=== PATIENT | female | born 1995 | race African-American/Black ===

== ENCOUNTER 2016-06-26 18:57 | Emergency (ER) | payer MEDICAID ==
--- NOTE | 2016-06-26 20:15 | ER Document Report ---
ED Medical Screen (RME) - General Stated Complaint: SORE THROAT, BODY PAIN Time seen by provider: 20:12 Mode of Arrival: Ambulatory Information source: Patient Notes: 20-year-old female presents to ED for sore throat bodyaches, pelvic pain, and vaginal pain for the last couple days. She states it is getting worse. Patient denies fevers. Last menstrual period she states it was at the beginning of this month but she's not sure of the date and it was spotty then. I have greeted and performed a rapid initial assessment of this patient. A comprehensive ED assessment and evaluation of the patient, analysis of test results and completion of medical decision making process will be conducted by an additional ED providers. TRAVEL OUTSIDE OF THE [place] IN LAST 30 DAYS: No - Related Data Allergies/Adverse Reactions: No Known Allergies Allergy (Verified 07/29/15 13:53) Past Medical History Pulmonary Medical History: Reports: Hx Bronchitis Neurological Medical History: Reports: Hx Migraine Musculoskeltal Medical History: Reports Hx Musculoskeletal Trauma Skin Medical History: Reports Hx Cellulitis Psychiatric Medical History: Reports: Hx Anxiety Past Surgical History: Reports: Hx Oral Surgery - wisdom teeth - Immunizations Immunizations up to date: Yes Hx Diphtheria, Pertussis, Tetanus Vaccination: Yes Physical Exam - Vital signs Vitals: Temp Pulse Resp BP Pulse Ox 99.5 F 98 H 20 142/85 H 100 06/26/16 20:07 06/26/16 20:07 06/26/16 20:07 06/26/16 20:07 06/26/16 20:07 Course - Vital Signs Vital signs: Temp Pulse Resp BP Pulse Ox 99.5 F 98 H 20 142/85 H 100 06/26/16 20:07 06/26/16 20:07 06/26/16 20:07 06/26/16 20:07 06/26/16 20:07
[2016-06-26 22:08] LABS: ABSOLUTE BASOPHILS # (AUTO) 0.1 10^3/uL (0.0-0.2); ABSOLUTE MONOCYTES (AUTO) 0.7 10^3/uL (0.1-1.4); ABSOLUTE NEUT (AUTO) 7.4 10^3/uL (1.7-8.2); BASOPHILS % (AUTO) 0.6 % (0-2); EOSINOPHILS % (AUTO) 0.3 % (0-6); HEMATOCRIT 41.6 % (36.0-47.0); HEMOGLOBIN 14.5 g/dL (12.0-15.5); HGB HCT DIFFERENCE 1.9; LYMPHOCYTES % (AUTO) 19.8 % (13-45); MEAN CORPUSCULAR HEMOGLOBIN 32.1 pg (27.0-33.4); MEAN CORPUSCULAR HGB CONC 34.8 g/dL (32.0-36.0); MEAN CORPUSCULAR VOLUME 92 fl (80-97); MONOCYTES % (AUTO) 6.8 % (3-13); RED BLOOD COUNT 4.51 10^6/uL (3.72-5.28); RED CELL DISTRIBUTION WIDTH 12.2 % (11.5-14.0); SEGMENTED NEUTROPHILS % (AUTO) 72.5 % (42-78); WHITE BLOOD COUNT 10.2 10^3/uL (4.0-10.5)
[2016-06-26 22:10] LABS: APPEARANCE,URINE SLIGHTLY-CLOUDY; BILIRUBIN,URINE NEGATIVE (NEGATIVE); GLUCOSE, URINE NEGATIVE (NEGATIVE); KETONES,URINE NEGATIVE (NEGATIVE); LEUKOCYTE ESTERASE,URINE LARGE (NEGATIVE); NITRITE,URINE NEGATIVE (NEGATIVE); PROTEIN,URINE NEGATIVE (NEGATIVE); URINE SPECIFIC GRAVITY 1.016; UROBILINOGEN,URINE NEGATIVE mg/dL (<2.0)
[2016-06-26 22:28] LABS: ALANINE AMINOTRANSFERASE 38 U/L (5-35); ALBUMIN 4.9 g/dL (3.7-5.6); ALKALINE PHOSPHATASE 97 U/L (50-135); ANION GAP 15 (5-19); ASPARTATE AMINO TRANSFERASE 22 U/L (5-30); BILIRUBIN,DIRECT 0.2 mg/dL (0.0-0.4); BILIRUBIN,TOTAL 0.6 mg/dL (0.2-1.3); BLOOD UREA NITROGEN 9 mg/dL (7-20); CALCIUM 10.4 mg/dL (8.4-10.2); CARBON DIOXIDE 27 mmol/L (22-30); CHLORIDE 102 mmol/L (98-107); CREATININE RESULT 0.73 mg/dL (0.52-1.25); GLUCOSE 98 mg/dL (75-110); POTASSIUM 4.3 mmol/L (3.6-5.0); SODIUM 143.7 mmol/L (137-145); TOTAL PROTEIN 8.6 g/dL (6.3-8.2)
[2016-06-27] MEDS ORDERED: ACETAMINOPHEN 325 MG TABLET PO ONE (01:22)
--- NOTE | 2016-06-27 02:22 | ER Document Report ---
ED General - General Chief Complaint: Vaginal Pain Stated Complaint: SORE THROAT, BODY PAIN Mode of Arrival: Ambulatory Information source: Patient TRAVEL OUTSIDE OF THE [place] IN LAST 30 DAYS: No - HPI Notes: Patient presents with report of suprapubic pain and vaginal pain she's had for the last 3-4 days with some urinary frequency, and tonight she thinks she is running a fever with chills and has pharyngitis. She reports no cough or congestion. She states she is in a monogamous relationship and does not have concern for STD. She reports no flu exposures. No constipation, diarrhea no neck stiffness. No significant vaginal discharge. - Related Data Allergies/Adverse Reactions: No Known Allergies Allergy (Verified 06/27/16 00:40) Past Medical History - General Information source: Patient Last Menstrual Period: / - Social History Smoking Status: Never Smoker Chew tobacco use (# tins/day): No Frequency of alcohol use: Occasional Drug Abuse: None Family History: Arthritis, DM, Hyperlipidemia, Hypertension, Malignancy. denies : CAD, COPD, CVA, Thyroid Disfunction Patient has suicidal ideation: No Patient has homicidal ideation: No Pulmonary Medical History: Reports: Hx Bronchitis Neurological Medical History: Reports: Hx Migraine Renal/ Medical History: Denies: Hx Peritoneal Dialysis Musculoskeltal Medical History: Reports Hx Musculoskeletal Trauma Skin Medical History: Reports Hx Cellulitis Psychiatric Medical History: Reports: Hx Anxiety Past Surgical History: Reports: Hx Oral Surgery - wisdom teeth - Immunizations Immunizations up to date: Yes Hx Diphtheria, Pertussis, Tetanus Vaccination: Yes Review of Systems - Review of Systems Notes: REVIEW OF SYSTEMS: CONSTITUTIONAL : Denies recent illness. EENT: Denies eye, ear or mouth pain or symptoms. Denies nasal or sinus congestion or discharge. Denies throat, tongue, or mouth swelling or difficulty swallowing. CARDIOVASCULAR: Denies chest pain. Denies palpitations or racing or irregular heart beat. Denies ankle edema. RESPIRATORY: Denies cough, cold, or chest congestion. Denies shortness of breath, difficulty breathing, or wheezing. GASTROINTESTINAL: Denies abdominal pain or distention. Denies nausea, vomiting , or diarrhea. Denies blood in vomitus, stools, or per rectum. Denies black, tarry stools. Denies constipation. GENITOURINARY: Reports dysuria. FEMALE GENITOURINARY: Denies vaginal bleeding, heavy or abnormal periods, irregular periods. Denies vaginal discharge or odor. MUSCULOSKELETAL: Denies back or neck pain or stiffness. Denies joint pain or swelling. SKIN: Denies rash, lesions or sores. HEMATOLOGIC : Denies easy bruising or bleeding. LYMPHATIC: Denies swollen, enlarged glands. NEUROLOGICAL: Denies confusion or altered mental status. Denies passing out or loss of consciousness. Denies dizziness or lightheadedness. Denies headache. Denies weakness or paralysis or loss of use of either side. Denies problems with gait or speech. Denies sensory loss, numbness, or tingling. Denies seizures. PSYCHIATRIC: Denies anxiety or stress. Denies depression, suicidal ideation, or homicidal ideation. ALL OTHER SYSTEMS REVIEWED AND NEGATIVE. Dictation was performed using [employer] voice recognition software Physical Exam - Vital signs Vitals: Temp Pulse Resp BP Pulse Ox 99.5 F 98 H 20 142/85 H 100 06/26/16 20:07 06/26/16 20:07 06/26/16 20:07 06/26/16 20:07 06/26/16 20:07 - Notes Notes: PHYSICAL EXAMINATION: GENERAL: Well-appearing, well-nourished and in no acute distress. HEAD: Atraumatic, normocephalic. EYES: Pupils equal round and reactive to light, extraocular movements intact, conjunctiva are normal. ENT: Nares patent. Moist mucous membranes. Very minimal tonsillar erythema. No exudate or abscess. NECK: Normal range of motion, supple. Scant adenopathy anterior cervical. LUNGS: Breath sounds clear to auscultation bilaterally and equal. No wheezes rales or rhonchi. HEART: Regular rate and rhythm without murmurs ABDOMEN: Soft, nontender, nondistended abdomen. No guarding, no rebound. No masses appreciated. Female : Normal external female genitalia. Cervix is somewhat anterior overall is benign. Minimal whitish discharge noted. No cervical motion tenderness. No significant adnexal mass or tenderness noted. Musculoskeletal: Normal range of motion, no pitting or edema. No cyanosis. NEUROLOGICAL: Cranial nerves grossly intact. Normal speech, normal gait. Normal sensory, motor exams PSYCH: Normal mood, normal affect. SKIN: Warm, Dry, normal turgor, no rashes or lesions noted. Course - Re-evaluation Re-evalutation: 06/27/16 05:02 No evidence for pyelonephritis or or GI bleed or anemia or strep or sepsis or diabetes or renal insufficiency. We will treat the patient for bacterial vaginosis and urinary tract infection. Also question viral pharyngitis as possible etiology for fever. - Vital Signs Vital signs: Temp Pulse Resp BP Pulse Ox 99.4 F 99 H 18 149/88 H 99 06/27/16 00:36 06/27/16 00:36 06/27/16 00:44 06/27/16 00:36 06/27/16 00:36 - Laboratory Result Diagrams: 06/26/16 21:30 06/26/16 21:30 Laboratory results interpreted by me: 06/26/16 06/26/16 21:30 21:30 Calcium 10.4 H ALT 38 H Total Protein 8.6 H Ur Leukocyte Esterase LARGE H Discharge - Discharge Clinical Impression: Bacterial vaginosis, UTI (urinary tract infection) Pharyngitis Qualifiers: Pharyngitis/tonsillitis etiology: unspecified etiology Qualified Code(s): J02.9 - Acute pharyngitis, unspecified Condition: Stable Disposition: HOME, SELF-CARE Instructions: Urinary Tract Infection ([facility]) Additional Instructions: *You have been evaluated for a sore throat, pharyngitis *Take medication as prescribed *Warm salt water gargles and throat lozenges for comfort *Change toothbrush after two days of antibiotics *Do not let anyone drink/eat after you *Good hand washing *Follow-up with a primary care provider *Return to ED for worsening condition change, needs Vaginosis, Bacterial Your exam shows you have bacterial vaginosis. This condition is due to an overgrowth of bacteria in the vagina. Symptoms may include vaginal itching or pain, a smelly discharge, and sometimes burning with urination. Normally this is not transmitted by sexual contact. Vaginosis can be treated with oral or topical antibiotics. Metronidazole ( Flagyl) pills are usually effective. Topical vaginal creams include Cleocin and Metro-Gel. You should avoid sexual contact until your symptoms are all better. Call the doctor if you develop pelvic pain, fever, or problems with urination, or if you don't improve as expected. Prescriptions: Ciprofloxacin HCl [Cipro 500 mg Tablet] 500 mg PO BID #14 tablet Metronidazole [Flagyl 500 mg Tablet] 500 mg PO BID #14 tablet Forms: Return to Work
[2016-06-27] MEDS ORDERED: METRONIDAZOLE 500 MG TABLET PO ONE (03:10)
[2016-06-27] MEDS ORDERED: CIPROFLOXACIN HCL 500 MG TABLET PO ONE (03:11)
[2016-06-27 03:38] LABS: CHLAM PCR NOT DETECTED (NOT DETECT)
[2016-06-27 05:08] VITALS: BP 113/81
== END 2016-06-27 05:08 | disposition home or self-care (01) ==
LOC: ER 18:57
DX: N76.0 Acute vaginitis (principal); N39.0 Urinary tract infection, site not specified; J02.9 Acute pharyngitis, unspecified; R10.2 Pelvic and perineal pain; R52 Pain, unspecified; R35.0 Frequency of micturition; R50.9 Fever, unspecified
CPT/HCPCS: 99283; 36415; 87070; 87086; 87210; 87880; 84703; 85025; 80053; 81001; 87491; 87591; J3490 ×3

== ENCOUNTER 2016-10-18 19:00 | Emergency (ER) | payer MEDICAID ==
[2016-10-18] MEDS ORDERED: ACETAMINOPHEN 325 MG TABLET PO ONE (19:05)
[2016-10-18] MEDS ORDERED: NORMAL SALINE 1000 ML 1,000 ML IV ONE (21:23)
[2016-10-18] MEDS ORDERED: KETOROLAC TROMETHAMINE INJ/PF 30 MG/1 ML SDV IV ONE (21:59)
[2016-10-18] MEDS ORDERED: ONDANSETRON HCL INJ/PF 4 MG/2 ML SDV IV ONE (21:59)
--- NOTE | 2016-10-18 22:15 | ER Document Report ---
ED ENT - General Mode of Arrival: Ambulatory Information source: Patient TRAVEL OUTSIDE OF THE [place] IN LAST 30 DAYS: No - HPI Patient complains to provider of: Throat problem - General Chief Complaint: Sore Throat Stated Complaint: SORE THROAT Time Seen by Provider: 10/18/16 21:23 Notes: Patient is a 20-year-old female who presents to the emergency department today with complaints of a sore throat. Patient states she has had fevers and generalized body aches as well. (SHENA VIRAMONTES) - Related Data Allergies/Adverse Reactions: No Known Allergies Allergy (Verified 10/18/16 19:03) Past Medical History - General Information source: Patient - Social History Smoking Status: Unknown if Ever Smoked Frequency of alcohol use: None Drug Abuse: None Lives with: Family Family History: Arthritis, DM, Hyperlipidemia, Hypertension, Malignancy Patient has suicidal ideation: No Patient has homicidal ideation: No Pulmonary Medical History: Reports: Hx Bronchitis Neurological Medical History: Reports: Hx Migraine Musculoskeltal Medical History: Reports Hx Musculoskeletal Trauma Skin Medical History: Reports Hx Cellulitis Psychiatric Medical History: Reports: Hx Anxiety Past Surgical History: Reports: Hx Oral Surgery - wisdom teeth - Immunizations Immunizations up to date: Yes Hx Diphtheria, Pertussis, Tetanus Vaccination: Yes Review of Systems - Review of Systems Constitutional: See HPI, Fever EENT: See HPI, Throat pain Cardiovascular: No symptoms reported Respiratory: No symptoms reported Gastrointestinal: No symptoms reported Genitourinary: No symptoms reported Female Genitourinary: No symptoms reported Musculoskeletal: See HPI, Joint pain - generalized body aches Skin: No symptoms reported Hematologic/Lymphatic: No symptoms reported Neurological/Psychological: No symptoms reported -: Yes All other systems reviewed and negative Physical Exam - Vital signs Interpretation: Tachycardic, Febrile - Vital signs Vitals: Temp Pulse Resp BP Pulse Ox 103 F H 130 H 18 124/76 100 10/18/16 19:04 10/18/16 19:04 10/18/16 19:04 10/18/16 19:04 10/18/16 19:04 - Notes Notes: Physical Exam: General: Alert, appears uncomfortable. HEENT: Normocephalic. Atraumatic. PERRL. Extraocular movements intact. Oropharynx clear. Symmetrical bilateral tonsillar hypertrophy, tonsillar exudate bilaterally, tonsillar erythema bilaterally. No airway compromise. Neck: Supple. Non-tender. Respiratory: No respiratory distress. Clear and equal breath sounds bilaterally. Cardiovascular: Regular rate and rhythm. Abdominal: Normal Inspection. Non-tender. No distension. Normal Bowel Sounds. Back: Non-tender. No deformity or step off. Extremities: Moves all four extremities. Upper extremities: Normal inspection. Normal ROM. Lower extremities: Normal inspection. No edema. Normal ROM. Neurological: Normal cognition. AAOx4. Normal speech. Psychological: Normal affect. Normal Mood. Skin: Warm. Dry. Normal color. (SHENA VIRAMONTES) Course - Re-evaluation Re-evalutation: 10/19/16 00:22 Patient presents with fever, tachycardia and throat pain. Patient has been treated with fluids, Toradol, Zofran and is feeling much better. Able to take p.o. without difficulty. Patient will be given penicillin G here in the emergency department. She will be given a work note as requested. She is to stay home and hydrate. Understands agrees with plan. Stable for discharge at this time. No evidence for peritonsillar abscess, retropharyngeal abscess, or any other infectious process at this time. (ERICA REEDER) - Vital Signs Vital signs: Temp Pulse Resp BP Pulse Ox 103 F H 130 H 18 124/76 100 10/18/16 19:04 10/18/16 19:04 10/18/16 19:04 10/18/16 19:04 10/18/16 19:04 Discharge - Discharge Clinical Impression: Strep pharyngitis Condition: Stable Disposition: HOME, SELF-CARE Instructions: Strep Throat ([facility]) Additional Instructions: Please follow-up with your doctor. Someone will call you if the throat culture is positive. Forms: Return to Work Scribe Attestation: 10/19/16 00:21 I personally performed the services described in the documentation, reviewed and edited the documentation which was dictated to the scribe in my presence, and it accurately records my words and actions. (ERICA REEDER) Scribe Documentation - Scribe Written by Scribe:: Abad Robles, 10/18/2016 2226 acting as scribe for :: [place]
[2016-10-18] MEDS ORDERED: PENICILLIN G BENZATHINE 1.2 MILLION UNIT/2 ML DISP.SYRIN IM ONE (23:28)
[2016-10-19 00:46] VITALS: BP 110/75
== END 2016-10-19 00:44 | disposition home or self-care (01) ==
LOC: ER 19:00
DX: J02.0 Streptococcal pharyngitis (principal); R50.9 Fever, unspecified; M25.50 Pain in unspecified joint
CPT/HCPCS: 99283; 96372; 96374; 96375; 36415; 87070; 87880; 87077; 86308; J3490; J1885; J0561; J2405; J7030

== ENCOUNTER 2017-02-19 17:25 | Emergency (ER) | payer SELFPAY ==
--- NOTE | 2017-02-19 19:27 | ER Document Report ---
ED GI/ - General Chief Complaint: Abdominal Pain Stated Complaint: ABDOMINAL PAIN Time Seen by Provider: 02/19/17 18:50 Mode of Arrival: Ambulatory Information source: Patient Notes: 21-year-old female presents to ED for pelvic pain 3 days with last menstrual period of 01/30/2017 with white vaginal discharge and unprotected sex. She also has a sore throat for 4 days with no fever. She states she has had a runny nose and cough. TRAVEL OUTSIDE OF THE [place] IN LAST 30 DAYS: No - HPI Patient complains to provider of: Pelvic pain, Vaginal discharge Onset: Other Timing/Duration: Gradual - 3-4 days Severity at maximum: Moderate Severity in ED: Moderate Pain Level: 2 Location: Pelvis, Other Vaginal bleeding (Compared to normal period): None - Sore throat LMP: 01/30/2017 Sexual history: Unprotected intercourse Associated symptoms: Vaginal discharge, Other - Sore throat and pelvic pain states she has had a runny nose and cough also. denies: Fever, Urinary hesitancy, Urinary frequency, Urinary retention, Urinary urgency Exacerbated by: Denies Relieved by: Denies Similar symptoms previously: Yes Recently seen / treated by doctor: No - Related Data Allergies/Adverse Reactions: No Known Allergies Allergy (Verified 02/19/17 19:47) Past Medical History - General Information source: Patient - Social History Smoking Status: Current Every Day Smoker Cigarette use (# per day): Yes - 1 cig a day Chew tobacco use (# tins/day): No Smoking Education Provided: Yes Frequency of alcohol use: Social Drug Abuse: None Family History: Arthritis, DM, Hyperlipidemia, Hypertension, Malignancy Patient has suicidal ideation: No Patient has homicidal ideation: No - Past Medical History Cardiac Medical History: Reports: None Pulmonary Medical History: Reports: Hx Bronchitis EENT Medical History: Reports: None Neurological Medical History: Reports: Hx Migraine Endocrine Medical History: Reports: None Renal/ Medical History: Reports: None Malignancy Medical History: Reports: None GI Medical History: Reports: None Musculoskeltal Medical History: Reports Hx Musculoskeletal Trauma Skin Medical History: Reports Hx Cellulitis Psychiatric Medical History: Reports: Hx Anxiety Traumatic Medical History: Reports: None Infectious Medical History: Reports: None Past Surgical History: Reports: Hx Oral Surgery - wisdom teeth - Immunizations Immunizations up to date: Yes Hx Diphtheria, Pertussis, Tetanus Vaccination: Yes Review of Systems - Review of Systems Constitutional: No symptoms reported EENT: Nose discharge, Sinus discharge, Throat pain Cardiovascular: No symptoms reported Respiratory: Cough Gastrointestinal: No symptoms reported Genitourinary: No symptoms reported Female Genitourinary: Other - pelvic pain Musculoskeletal: No symptoms reported Skin: No symptoms reported Hematologic/Lymphatic: No symptoms reported Neurological/Psychological: No symptoms reported -: Yes All other systems reviewed and negative Physical Exam - Vital signs Vitals: Temp Pulse Resp BP Pulse Ox 99.1 F 90 16 123/82 98 02/19/17 17:35 02/19/17 17:35 02/19/17 17:35 02/19/17 17:35 02/19/17 17:35 Interpretation: Normal - General General appearance: Appears well, Alert - HEENT Head: Normocephalic, Atraumatic Eyes: Normal Pupils: PERRL - Respiratory Respiratory status: No respiratory distress Chest status: Nontender Breath sounds: Normal Chest palpation: Normal - Cardiovascular Rhythm: Regular Heart sounds: Normal auscultation Murmur: No - Abdominal Inspection: Normal Distension: No distension Bowel sounds: Normal Tenderness: Nontender Organomegaly: No organomegaly - Genitourinary External exam: Other - Multiple healing infected hair follicles to the mons pubis, enlarged lymph node in the right groin Speculum exam: Cervix closed, Vaginal discharge - White Vaginal bleeding: None Bimanuel exam: Normal - Back Back: Normal, Nontender - Extremities General upper extremity: Normal inspection, Nontender, Normal color, Normal ROM , Normal temperature General lower extremity: Normal inspection, Nontender, Normal color, Normal ROM , Normal temperature, Normal weight bearing. No: Yola's sign - Neurological Neuro grossly intact: Yes Cognition: Normal Orientation: AAOx4 [place] Coma Scale Eye Opening: Spontaneous [place] Coma Scale Verbal: Oriented [place] Coma Scale Motor: Obeys Commands [place] Coma Scale Total: 15 Speech: Normal Motor strength normal: LUE, RUE, LLE, RLE Sensory: Normal - Psychological Associated symptoms: Normal affect, Normal mood - Skin Skin Temperature: Warm Skin Moisture: Dry Skin Color: Normal Course - Re-evaluation Re-evalutation: 02/19/17 20:43 Patient was treated with Rocephin and azithromycin for her pelvic pain. She was also given a prescription for Keflex for her folliculitis to the mons pubis. She was given a prescription for 2 Diflucan 1 to take in the morning and 1 to take in a week after the Keflex as she has a positive yeast infection. - Vital Signs Vital signs: Temp Pulse Resp BP Pulse Ox 99.1 F 90 16 123/82 98 02/19/17 17:35 02/19/17 17:35 02/19/17 17:35 02/19/17 17:35 02/19/17 17:35 - Laboratory Laboratory results interpreted by me: 02/19/17 19:03 Urine Urobilinogen 2.0 H Discharge - Discharge Clinical Impression: Pelvic pain, Yeast vaginitis, Folliculitis Condition: Stable Disposition: HOME, SELF-CARE Instructions: Family Physicians / Practices Additional Instructions: VAGINAL YEAST INFECTION: You have evidence of a yeast infection -- called "coby." A vaginal yeast infection often causes itching and discharge. While not dangerous, it can be very unpleasant. A yeast infection often follows the use of powerful antibiotics. It is more likely to occur in diabetics. The treatment now is usually a single pill of Diflucan, but also an antifungal cream or suppository may be used for a few days. You do not need to avoid sexual intercourse. Recurrences are common. You can make a recurrence less likely by wearing cotton underwear and avoiding tight clothing. For mild recurrences, you can try [id number] creams or suppositories that are made specifically for yeast. If the symptoms do not resolve, you should follow up for re-examination. Sometimes treatment of the sexual partner is necessary if infections are recurrent. Folliculitis You have a skin infection called folliculitis. This occurs when bacteria infect the hair follicles of the skin. Typically, redness and small pustules are found where hair shafts enter the skin. Allergy, surface irritation, shaving, and exposure to hot tubs predispose to folliculitis. The usual treatment is antibiotic ointment, sometimes combined with cortisone-type medication. Warm compresses are often used. If the infection has moved deeper into the skin, oral antibiotics may be necessary. To avoid future episodes of folliculitis, you must identify (if possible) the factors which allowed this infection to start. If you develop increasing pain, swelling, fever, or red streaks, call the doctor or return for re-evaluation. CEPHALOSPORINS: An antibiotic of the cephalosporin class has been prescribed. This type of antibiotic covers a wide variety of infections, including those of the skin, lungs, middle ear, and urinary tract. This antibiotic is somewhat similar to the penicillin family. In rare cases , a person who is allergic to penicillin will also be allergic to this medication. If you have had a severe allergic reaction to penicillin, and have not taken this antibiotic since that time, notify your doctor. Antibiotics which cover many germs ("broad spectrum" antibiotics) are more likely to cause diarrhea or "yeast" infections. Women prone to vaginal yeast problems may suffer an attack after taking this antibiotic. In infants, oral thrush (white spots "stuck" on the cheek) or yeast diaper rash may result. See your doctor if these problems occur. Call the doctor at once if you develop hives, itching, shortness of breath , or lightheadedness. Cephalexin The antibiotic you've been prescribed is a member of the cephalosporin class. This type of antibiotic covers a wide variety of infections, including those of the skin, lungs, and urinary tract. It's useful for staph infections. This antibiotic is slightly similar to the penicillin family. In rare cases , a person who is allergic to penicillin will also be allergic to this medication. If you have had a severe allergic reaction to penicillin, and have not taken this antibiotic since that time, notify your doctor. Antibiotics which cover many germs ("broad spectrum" antibiotics) are more likely to cause diarrhea or "yeast" infections. Women prone to vaginal yeast problems may suffer an attack after taking this antibiotic. In infants, oral thrush (white spots "stuck" on the cheek) or yeast diaper rash may result. See your doctor if these problems occur. Call at once if you develop itching, hives , shortness of breath, or lightheadedness. AZITHROMYCIN: Azithromycin (Zithromax) is a broad spectrum antibiotic in the same class as erythromycin. It can treat a variety of bacterial infections, but is most frequently used for respiratory infections. Azithromycin is extremely long-lasting. It accumulates in body tissues and continues to kill bacteria for many days. In order to improve absorption, Azithromycin should be taken at least one hour before or two hours after a meal. It does not have the same strong tendency to upset the stomach as erythromycin and is usually very well tolerated. Patients who have had a rash or other true allergic reactions to erythromycin should not take this medication. Call if you develop gastrointestinal distress, severe diarrhea, rash, hives, itching, or shortness of breath. FOLLOW-UP CARE: If you have been referred to a physician for follow-up care, call the physician s office for an appointment as you were instructed or within the next two days. If you experience worsening or a significant change in your symptoms, notify the physician immediately or return to the Emergency Department at any time for re-evaluation. Prescriptions: Cephalexin Monohydrate [Keflex 500 mg Capsule] 500 mg PO QID #20 capsule Fluconazole [Diflucan] 150 mg PO ONCE PRN #2 tablet PRN Reason:
[2017-02-19 19:30] LABS: APPEARANCE,URINE CLEAR; BILIRUBIN,URINE NEGATIVE (NEGATIVE); GLUCOSE, URINE NEGATIVE (NEGATIVE); KETONES,URINE NEGATIVE (NEGATIVE); LEUKOCYTE ESTERASE,URINE NEGATIVE (NEGATIVE); NITRITE,URINE NEGATIVE (NEGATIVE); PROTEIN,URINE NEGATIVE (NEGATIVE); URINE SPECIFIC GRAVITY 1.017
[2017-02-19] MEDS ORDERED: CEFTRIAXONE INJ 250 MG VIAL IM ONE (20:08)
[2017-02-19] MEDS ORDERED: LIDOCAINE 1% INJ-PF (10 MG/ML) 30 ML SDV INJ ONE (20:08)
[2017-02-19] MEDS ORDERED: AZITHROMYCIN 250 MG TABLET PO ONE (20:08)
[2017-02-19 21:08] VITALS: BP 126/74
[2017-02-19 21:45] LABS: CHLAM PCR NOT DETECTED (NOT DETECT)
== END 2017-02-19 21:09 | disposition home or self-care (01) ==
LOC: ER 17:25
DX: B37.3 Candidiasis of vulva and vagina (principal); L73.9 Follicular disorder, unspecified; R10.2 Pelvic and perineal pain; J02.9 Acute pharyngitis, unspecified; R05 Cough; R09.89 Other specified symptoms and signs involving the circulatory and respiratory systems; F17.210 Nicotine dependence, cigarettes, uncomplicated
CPT/HCPCS: 99283; 96372; 87070; 87210; 87880; 81025; 81001; 87491; 87591; J3490; J0696

== ENCOUNTER 2017-03-12 22:33 | Emergency (ER) | payer SELFPAY ==
[2017-03-12 22:44] VITALS: BP 133/91
[2017-03-12 23:31] LABS: ALANINE AMINOTRANSFERASE 34 U/L (9-52); ALBUMIN 4.7 g/dL (3.5-5.0); ALKALINE PHOSPHATASE 69 U/L (38-126); ANION GAP 13 (5-19); ASPARTATE AMINO TRANSFERASE 23 U/L (14-36); BILIRUBIN,DIRECT 0.5 mg/dL (0.0-0.4); BILIRUBIN,TOTAL 0.7 mg/dL (0.2-1.3); BLOOD UREA NITROGEN 9 mg/dL (7-20); CALCIUM 9.7 mg/dL (8.4-10.2); CARBON DIOXIDE 26 mmol/L (22-30); CHLORIDE 102 mmol/L (98-107); CREATININE RESULT 0.79 mg/dL (0.52-1.25); GLUCOSE 93 mg/dL (75-110); LIPASE 135.9 U/L (23-300); POTASSIUM 4.6 mmol/L (3.6-5.0); SODIUM 140.8 mmol/L (137-145); TOTAL PROTEIN 8.2 g/dL (6.3-8.2)
[2017-03-12 23:34] LABS: ABSOLUTE LYMPHOCYTES (AUTO) 2.4 10^3/uL (0.5-4.7); ABSOLUTE MONOCYTES (AUTO) 0.5 10^3/uL (0.1-1.4); ABSOLUTE NEUT (AUTO) 3.3 10^3/uL (1.7-8.2); BASOPHILS % (AUTO) 0.4 % (0-2); EOSINOPHILS % (AUTO) 0.8 % (0-6); HEMATOCRIT 41.9 % (36.0-47.0); HEMOGLOBIN 14.9 g/dL (12.0-15.5); HGB HCT DIFFERENCE 2.8; LYMPHOCYTES % (AUTO) 38.8 % (13-45); MEAN CORPUSCULAR HEMOGLOBIN 32.4 pg (27.0-33.4); MEAN CORPUSCULAR HGB CONC 35.6 g/dL (32.0-36.0); MEAN CORPUSCULAR VOLUME 91 fl (80-97); RED CELL DISTRIBUTION WIDTH 12.5 % (11.5-14.0); WHITE BLOOD COUNT 6.3 10^3/uL (4.0-10.5)
[2017-03-12 23:38] LABS: APPEARANCE,URINE SLIGHTLY-CLOUDY; BILIRUBIN,URINE NEGATIVE (NEGATIVE); GLUCOSE, URINE NEGATIVE (NEGATIVE); KETONES,URINE NEGATIVE (NEGATIVE); LEUKOCYTE ESTERASE,URINE NEGATIVE (NEGATIVE); NITRITE,URINE NEGATIVE (NEGATIVE); PROTEIN,URINE NEGATIVE (NEGATIVE); URINE SPECIFIC GRAVITY 1.009; UROBILINOGEN,URINE NEGATIVE mg/dL (<2.0)
[2017-03-12 23:50] LABS: BACTERIA,URINE TRACE /HPF; WBC,URINE 0-1 /HPF
== END 2017-03-13 00:57 | disposition left against medical advice (07) ==
LOC: ER 22:33
DX: Z53.21 Procedure and treatment not carried out due to patient leaving prior to being seen by health care provider (principal)
CPT/HCPCS: 36415; 80053; 81001; 83690; 84703; 85025

== ENCOUNTER 2017-05-04 05:22 | Emergency (ER) | payer SELFPAY ==
[2017-05-04 07:44] LABS: A TYPE INFLUENZA AG NEGATIVE (NEGATIVE); B INFLUENZA AG NEGATIVE (NEGATIVE)
[2017-05-04 07:56] VITALS: BP 114/97
--- NOTE | 2017-05-04 07:56 | ER Document Report ---
ED General - General Chief Complaint: Sore Throat Stated Complaint: COUGH/CHEST PAIN Time Seen by Provider: 05/04/17 06:05 Mode of Arrival: Ambulatory Information source: Patient Notes: 21 yr old female presents with complaints of sore throat intermittent cough. Pt notes fever and body aches pt has been feeling ill for the past few days. Notes that she takes Robitussin Tylenol feels better when she wakes up her body hurts again patient has been possibly exposed to influenza or viral infections from work TRAVEL OUTSIDE OF THE [place] IN LAST 30 DAYS: No - HPI Onset: Other - 3 or 4 day duration Onset/Duration: Intermittent Quality of pain: Achy Severity: Mild Pain Level: 1 Associated symptoms: Body/muscle aches, Nonproductive cough, Fever, Sore throat Exacerbated by: Denies Relieved by: Other - [id number] medications Similar symptoms previously: No Recently seen / treated by doctor: No - Related Data Allergies/Adverse Reactions: No Known Allergies Allergy (Verified 03/12/17 22:41) Past Medical History - Social History Smoking Status: Current Every Day Smoker Cigarette use (# per day): Yes Chew tobacco use (# tins/day): No Smoking Education Provided: Yes - Patient counselled regarding cessation for 2 minutes Frequency of alcohol use: Occasional Drug Abuse: None Family History: Arthritis, DM, Hyperlipidemia, Hypertension, Malignancy Patient has suicidal ideation: No Patient has homicidal ideation: No Pulmonary Medical History: Reports: Hx Bronchitis Neurological Medical History: Reports: Hx Migraine Renal/ Medical History: Denies: Hx Peritoneal Dialysis Musculoskeltal Medical History: Reports Hx Musculoskeletal Trauma Skin Medical History: Reports Hx Cellulitis Psychiatric Medical History: Reports: Hx Anxiety Past Surgical History: Reports: Hx Oral Surgery - wisdom teeth - Immunizations Immunizations up to date: Yes Hx Diphtheria, Pertussis, Tetanus Vaccination: Yes Review of Systems - Review of Systems Notes: REVIEW OF SYSTEMS: CONSTITUTIONAL : Admits to fevers chills EENT: Admits to sore throat CARDIOVASCULAR: Denies chest pain. Denies palpitations or racing or irregular heart beat. Denies ankle edema. RESPIRATORY: Denies cough, cold, or chest congestion. Denies shortness of breath, difficulty breathing, or wheezing. GASTROINTESTINAL: Denies abdominal pain or distention. Denies nausea, vomiting , or diarrhea. Denies blood in vomitus, stools, or per rectum. Denies black, tarry stools. Denies constipation. GENITOURINARY: Denies difficulty urinating, painful urination, burning, frequency, blood in urine, or discharge. FEMALE GENITOURINARY: Denies vaginal bleeding, heavy or abnormal periods, irregular periods. Denies vaginal discharge or odor. MUSCULOSKELETAL: Admits to body aches SKIN: Denies rash, lesions or sores. HEMATOLOGIC : Denies easy bruising or bleeding. LYMPHATIC: Denies swollen, enlarged glands. NEUROLOGICAL: Denies confusion or altered mental status. Denies passing out or loss of consciousness. Denies dizziness or lightheadedness. Denies headache. Denies weakness or paralysis or loss of use of either side. Denies problems with gait or speech. Denies sensory loss, numbness, or tingling. Denies seizures. PSYCHIATRIC: Denies anxiety or stress. Denies depression, suicidal ideation, or homicidal ideation. ALL OTHER SYSTEMS REVIEWED AND NEGATIVE. PHYSICAL EXAMINATION: GENERAL: Well-appearing, well-nourished and in no acute distress. Febrile HEAD: Atraumatic, normocephalic. EYES: Pupils equal round and reactive to light, extraocular movements intact, conjunctiva are normal. ENT: Nares patent, oropharynx clear without exudates. Moist mucous membranes. NECK: Normal range of motion, supple without lymphadenopathy LUNGS: Breath sounds clear to auscultation bilaterally and equal. No wheezes rales or rhonchi. Coughing HEART: Initially tachycardic on arrival when I reevaluated the patient's heart rate has improved ABDOMEN: Soft, nontender, nondistended abdomen. No guarding, no rebound. No masses appreciated. Female : deferred Musculoskeletal: Normal range of motion, no pitting or edema. No cyanosis. NEUROLOGICAL: Cranial nerves grossly intact. Normal speech, normal gait. Normal sensory, motor exams PSYCH: Normal mood, normal affect. SKIN: Warm, Dry, normal turgor, no rashes or lesions noted. Dictation was performed using [employer] voice recognition software Physical Exam - Vital signs Vitals: Temp Pulse Resp BP Pulse Ox 103.0 F H 127 H 18 122/79 97 05/04/17 05:41 05/04/17 05:41 05/04/17 05:41 05/04/17 05:41 05/04/17 05:41 Course - Re-evaluation Re-evalutation: 05/04/17 09:45 Rapid strep influenza was negative, patient overall looks well and appears to have viral syndrome, she is appropriate in her presentation. I have spoken with the patient extensively we have discussed very strict return precautions patient states she understands and will return if there is any other concerns After performing a Medical Screening Examination, I estimate there is LOW risk for ACUTE CORONARY SYNDROME, PULMONARY EMBOLI, RESPIRATORY FAILURE, SEPSIS OR MENINGITIS, thus I consider the discharge disposition reasonable. I have reevaluated this patient multiple times and no significant life threatening changes are noted. The patient and I have discussed the diagnosis and risks, and we agree with discharging home with close follow-up. We also discussed returning to the Emergency Department immediately if new or worsening symptoms occur. We have discussed the symptoms which are most concerning (e.g., changing or worsening pain, trouble swallowing or breathing, neck stiffness, fever) that necessitate immediate return. - Vital Signs Vital signs: Temp Pulse Resp BP Pulse Ox 100.5 F H 109 H 18 114/97 H 98 05/04/17 07:56 05/04/17 07:56 05/04/17 07:56 05/04/17 07:56 05/04/17 07:56 Discharge - Discharge Clinical Impression: Viral URI with cough Fever Qualifiers: Fever type: unspecified Qualified Code(s): R50.9 - Fever, unspecified Condition: Stable Disposition: HOME, SELF-CARE Instructions: Viral Syndrome ([facility]) Forms: Return to Work Referrals: MARGARETH TINAJERO MD [Primary Care Provider] - Follow up tomorrow
== END 2017-05-04 08:03 | disposition home or self-care (01) ==
LOC: ER 05:22
DX: J06.9 Acute upper respiratory infection, unspecified (principal); R07.89 Other chest pain; M79.1 Myalgia; F17.210 Nicotine dependence, cigarettes, uncomplicated
CPT/HCPCS: 87070; 87804; 87880; 99283

== ENCOUNTER 2017-09-13 18:44 | Emergency (ER) | payer SELFPAY ==
--- NOTE | 2017-09-13 19:27 | ER Document Report ---
ED General - General Chief Complaint: Ear Pain Stated Complaint: STOMACH PAIN, THROAT/EAR PAIN Time Seen by Provider: 09/13/17 19:13 Mode of Arrival: Ambulatory Information source: Patient Notes: 21-year-old female presents to ED for complaint of bilateral ear pain 4 days with a sore throat for 2 days. She states she has been having abdominal cramping like she is having her. But her period was due on September 10 but she did not have it checked. She states she took a test last night at 10:00 and it was negative. Alert oriented, pupils equal and react to light, speaking in full sentences, respirations regular and unlabored, and steady on her feet TRAVEL OUTSIDE OF THE [place] IN LAST 30 DAYS: No - HPI Onset: Other Onset/Duration: Gradual Quality of pain: Sharp Severity: Moderate Pain Level: 4 Associated symptoms: Earache, Sore throat, Other - Abdominal cramping Exacerbated by: Denies Relieved by: Denies Similar symptoms previously: Yes Recently seen / treated by doctor: No - Related Data Allergies/Adverse Reactions: No Known Allergies Allergy (Verified 09/13/17 18:52) Past Medical History - General Information source: Patient - Social History Smoking Status: Current Some Day Smoker Cigarette use (# per day): Yes - black and mild Chew tobacco use (# tins/day): No Smoking Education Provided: Yes - 4 min Frequency of alcohol use: Social Drug Abuse: None Occupation: call center Lives with: Friend Family History: Arthritis, DM, Hyperlipidemia, Hypertension, Malignancy Patient has suicidal ideation: No Patient has homicidal ideation: No - Past Medical History Cardiac Medical History: Reports: None Pulmonary Medical History: Reports: Hx Bronchitis EENT Medical History: Reports: None Neurological Medical History: Reports: Hx Migraine Endocrine Medical History: Reports: None Renal/ Medical History: Reports: None Malignancy Medical History: Reports: None GI Medical History: Reports: None Musculoskeltal Medical History: Reports Hx Musculoskeletal Trauma Skin Medical History: Reports Hx Cellulitis Psychiatric Medical History: Reports: Hx Anxiety Traumatic Medical History: Reports: None Infectious Medical History: Reports: None Past Surgical History: Reports: Hx Oral Surgery - wisdom teeth - Immunizations Immunizations up to date: Yes Hx Diphtheria, Pertussis, Tetanus Vaccination: Yes Review of Systems - Review of Systems Constitutional: No symptoms reported EENT: No symptoms reported Cardiovascular: No symptoms reported Respiratory: No symptoms reported Gastrointestinal: No symptoms reported Genitourinary: No symptoms reported Female Genitourinary: Other - Menstrual period was due on September 10 and she has not had it yet. Musculoskeletal: No symptoms reported Skin: No symptoms reported Hematologic/Lymphatic: No symptoms reported Neurological/Psychological: No symptoms reported -: Yes All other systems reviewed and negative Physical Exam - Vital signs Vitals: Temp Pulse Resp BP Pulse Ox 98.0 F 95 16 131/79 H 98 09/13/17 18:57 09/13/17 18:57 09/13/17 18:57 09/13/17 18:57 09/13/17 18:57 Interpretation: Normal - General General appearance: Appears well, Alert - HEENT Head: Normocephalic, Atraumatic Eyes: Normal Pupils: PERRL Ears: Normal External canal: Normal Tympanic membrane: Normal Sinus: Tenderness Nasal: Purulent discharge, Swelling Mouth/Lips: Normal Mucous membranes: Normal Pharynx: Post nasal drainage Neck: Normal - Respiratory Respiratory status: No respiratory distress Chest status: Nontender Breath sounds: Normal Chest palpation: Normal - Cardiovascular Rhythm: Regular Heart sounds: Normal auscultation Murmur: No - Abdominal Inspection: Normal Distension: No distension Bowel sounds: Normal Tenderness: Tender - Bilateral lower abdominal/pelvic tenderness for the last 4 days states she is late for her. Organomegaly: No organomegaly - Back Back: Normal, Nontender - Extremities General upper extremity: Normal inspection, Nontender, Normal color, Normal ROM , Normal temperature General lower extremity: Normal inspection, Nontender, Normal color, Normal ROM , Normal temperature, Normal weight bearing. No: Yola's sign - Neurological Neuro grossly intact: Yes Cognition: Normal Orientation: AAOx4 Peerless Coma Scale Eye Opening: Spontaneous Peerless Coma Scale Verbal: Oriented Dayne Coma Scale Motor: Obeys Commands Dayne Coma Scale Total: 15 Speech: Normal Motor strength normal: LUE, RUE, LLE, RLE Sensory: Normal - Psychological Associated symptoms: Normal affect, Normal mood - Skin Skin Temperature: Warm Skin Moisture: Dry Skin Color: Normal Course - Re-evaluation Re-evalutation: 09/13/17 20:14 Labs discussed with patient. Written report of labs given to patient. Patient was treated with Claritin, Sudafed, Mucinex, and ibuprofen for cough cold congestion sore throat and earache. She was also treated with tetanus immunization because she states she was bit by a dog and a person this week and her immunizations were not up-to-date. No signs of symptoms of infection at the sites where she states she was bitten. After performing a Medical Screening Examination, I estimate there is LOW risk for ACUTE CORONARY SYNDROME, RESPIRATORY FAILURE, SEPSIS OR MENINGITIS, thus I consider the discharge disposition reasonable. I have reevaluated this patient multiple times and no significant life threatening changes are noted. The patient and I have discussed the diagnosis and risks, and we agree with discharging home with close follow-up. We also discussed returning to the Emergency Department immediately if new or worsening symptoms occur. We have discussed the symptoms which are most concerning (e.g., changing or worsening pain, trouble swallowing or breathing, neck stiffness, fever) that necessitate immediate return. - Vital Signs Vital signs: Temp Pulse Resp BP Pulse Ox 98.8 F 85 16 115/70 100 09/13/17 20:49 09/13/17 20:49 09/13/17 20:49 09/13/17 20:49 09/13/17 20:49 Discharge - Discharge Clinical Impression: Otalgia of both ears, Viral sore throat, Abdominal cramping with late menstrual cycle URI (upper respiratory infection) Qualifiers: URI type: unspecified URI Qualified Code(s): J06.9 - Acute upper respiratory infection, unspecified HTN (hypertension) Qualifiers: Hypertension type: unspecified Qualified Code(s): I10 - Essential (primary) hypertension Condition: Stable Disposition: HOME, SELF-CARE Additional Instructions: SORE THROAT: Sore throats may be caused by viruses, bacteria, or fungi. Most are due to a virus, and must get better on their own. Bacterial sore throats, particularly those due to "strep," need treatment with antibiotics. If an antibiotic is prescribed, be sure to take the medication for a full 10 days. Failure to take the antibiotic can result in complications such as rheumatic fever. Sometimes, an injection of antibiotics is given instead of pills or liquid. This single "shot" is equal in effectiveness to the oral medication. To relieve symptoms, take acetaminophen for pain. Sip clear liquids frequently, or eat popsicles or ice chips. Anesthetic sprays or lozenges may help. Make sure the air in the room is not too dry. Avoid using decongestants or antihistamines. Call the doctor if there is no improvement in two days, or if you have difficulty breathing, increasing throat pain, high fever, rash, or frequent vomiting. UPPER RESPIRATORY ILLNESS: You have a viral infection of the respiratory passages -- a "cold." This common infection causes nasal congestion, drainage, and often sore throat and cough. It is highly contagious. The disease usually lasts about 10 to 14 days. There is no "cure" for the viral infection -- it must run its course. If there is a complication, such as bacterial infection in the nose, sinuses, middle ear, or bronchial tubes, antibiotics may be required. The antibiotics won't affect the virus. Drink plenty of fluids. A humidifier may help. An expectorant medication or decongestant may make you more comfortable. Use acetaminophen or ibuprofen for fever or aches. See the doctor if fever persists over two days, if there is any significant worsening of your symptoms, or if you simply fail to improve as expected. USE OF ACETAMINOPHEN (Tylenol): Acetaminophen may be taken for pain relief or fever control. It's much safer than aspirin, offering a wider range of "safe" dosages. It is safe during . Some brand names are Tylenol, Panadol, Datril, Anacin 3, Tempra, and Liquiprin. Acetaminophen can be repeated every four hours. The following are maximum recommended dosages: >89 pounds or adults 650 mg to 900 mg Acetaminophen can be repeated every four hours. Maximum dose not to exceed 4000 mg a day. SMOKING: If you smoke, you should stop smoking. The tar and chemicals in cigarette smoke are harmful. Smoking has been shown to cause: emphysema chronic bronchitis lung cancer mouth and throat cancer stomach and pancreas cancer premature aging defects In addition, smoking increases ear and lung infections in children of smokers. You were treated with a tetanus shot because you state you did not know when you last tetanus shot was and you stated you were bit by a dog in a person within the last week. There are no signs of infection at either bite. You will treated with Claritin 10 mg, Sudafed 30 mg, Mucinex 600 mg, and ibuprofen 800 mg, for your cough cold congestion and sore throat and ear pain. There are no signs of symptoms of a bacterial infection. You stated you were having lower abdominal cramping and that her menstrual cycle was late. Your test and urine are both negative. Please follow-up with your primary doctor or an HORSE TRAINER if you continued to have abdominal cramping. FOLLOW-UP CARE: If you have been referred to a physician for follow-up care, call the physician s office for an appointment as you were instructed or within the next two days. If you experience worsening or a significant change in your symptoms, notify the physician immediately or return to the Emergency Department at any time for re-evaluation. Forms: Elevated Blood Pressure, Smoking Cessation Education, Return to Work Referrals: MARGARETH TINAJERO MD [ACTIVE STAFF] - Follow up as needed
[2017-09-13 19:32] LABS: APPEARANCE,URINE CLEAR; BILIRUBIN,URINE NEGATIVE (NEGATIVE); COLOR,URINE YELLOW; GLUCOSE, URINE NEGATIVE (NEGATIVE); KETONES,URINE NEGATIVE (NEGATIVE); LEUKOCYTE ESTERASE,URINE NEGATIVE (NEGATIVE); NITRITE,URINE NEGATIVE (NEGATIVE); PROTEIN,URINE NEGATIVE (NEGATIVE); URINE SPECIFIC GRAVITY 1.014; UROBILINOGEN,URINE NEGATIVE mg/dL (<2.0)
[2017-09-13] MEDS ORDERED: LORATADINE 10 MG TABLET PO ONE (20:07)
[2017-09-13] MEDS ORDERED: GUAIFENESIN 600 MG TABLET.SA PO ONE (20:07)
[2017-09-13] MEDS ORDERED: IBUPROFEN 800 MG TABLET PO ONE (20:07)
[2017-09-13] MEDS ORDERED: DIPH/PERTUSS(ACELL)/TETANUS VAC/PF 0.5 ML SYR (>=10YO) IM ONE (20:07)
[2017-09-13] MEDS ORDERED: PSEUDOEPHEDRINE HCL 30 MG TABLET PO ONE (20:07)
[2017-09-13 20:54] VITALS: BP 115/70
== END 2017-09-13 20:52 | disposition home or self-care (01) ==
LOC: ER 18:44
DX: J06.9 Acute upper respiratory infection, unspecified (principal); H92.03 Otalgia, bilateral; N92.6 Irregular menstruation, unspecified; J02.9 Acute pharyngitis, unspecified; B34.9 Viral infection, unspecified; R10.9 Unspecified abdominal pain; I10 Essential (primary) hypertension; R10.2 Pelvic and perineal pain; F17.200 Nicotine dependence, unspecified, uncomplicated
CPT/HCPCS: 81001; 81025; 90471; 90715; 99283; 99406

== ENCOUNTER 2017-10-09 22:46 | Emergency (ER) | payer SELFPAY ==
--- NOTE | 2017-10-09 23:38 | ER Document Report ---
ED Medical Screen (RME) - General Chief Complaint: Nausea/Vomiting/Diarrhea Stated Complaint: DIARRHEA,NAUSEA,VOMITING Mode of Arrival: Ambulatory Information source: Patient Notes: Patient is a 21 year old female presenting to the emergency department complaining of diarrhea, nausea, and vomiting onset 6 days ago. Patient states she has been around sick contacts. Patient denies recent travels, camping, bloody stools or hematemesis. Patient was seen and discharged recently for similar problems HEAD: Normocephlaic, Atraumatic LUNGS: No respiratory distress ENT: Dry OM. I have greeted and performed a rapid initial assessment of this patient. A comprehensive ED assessment and evaluation of the patient, analysis of test results and completion of the medical decision making process will be conducted by additional ED providers. TRAVEL OUTSIDE OF THE [place] IN LAST 30 DAYS: No - Related Data Allergies/Adverse Reactions: No Known Allergies Allergy (Verified 09/13/17 18:52) Past Medical History Pulmonary Medical History: Reports: Hx Bronchitis Neurological Medical History: Reports: Hx Migraine Renal/ Medical History: Denies: Hx Peritoneal Dialysis Musculoskeltal Medical History: Reports Hx Musculoskeletal Trauma Skin Medical History: Reports Hx Cellulitis Psychiatric Medical History: Reports: Hx Anxiety Past Surgical History: Reports: Hx Oral Surgery - wisdom teeth - Immunizations Immunizations up to date: Yes Hx Diphtheria, Pertussis, Tetanus Vaccination: Yes Physical Exam - Vital signs Vitals: Temp Pulse Resp BP Pulse Ox 99.6 F 108 H 16 90/64 L 100 10/09/17 23:12 10/09/17 23:12 10/09/17 23:12 10/09/17 23:12 10/09/17 23:12 Course - Vital Signs Vital signs: Temp Pulse Resp BP Pulse Ox 99.6 F 108 H 16 90/64 L 100 10/09/17 23:12 10/09/17 23:12 10/09/17 23:12 10/09/17 23:12 10/09/17 23:12
[2017-10-10 01:04] LABS: APPEARANCE,URINE SLIGHTLY-CLOUDY; BILIRUBIN,URINE NEGATIVE (NEGATIVE); COLOR,URINE YELLOW; GLUCOSE, URINE NEGATIVE (NEGATIVE); KETONES,URINE NEGATIVE (NEGATIVE); LEUKOCYTE ESTERASE,URINE NEGATIVE (NEGATIVE); NITRITE,URINE NEGATIVE (NEGATIVE); PROTEIN,URINE NEGATIVE (NEGATIVE); URINE SPECIFIC GRAVITY 1.016; UROBILINOGEN,URINE NEGATIVE mg/dL (<2.0)
[2017-10-10] MEDS ORDERED: SUCRALFATE 1 GM TABLET PO ONE (03:08)
--- NOTE | 2017-10-10 03:15 | ER Document Report ---
ED General - General Chief Complaint: Nausea/Vomiting/Diarrhea Stated Complaint: DIARRHEA,NAUSEA,VOMITING Time Seen by Provider: 10/09/17 23:34 Mode of Arrival: Ambulatory Notes: Patient is a 21-year-old female who comes emergency department for chief complaint of vomiting and diarrhea. She states that over the past 6 days she has had intermittent diarrhea, when she wakes up in the morning she feels congestion in her throat and it causes her to vomit, she vomited once during the day otherwise. She denies fever chills. She has had multiple sick contacts at work. Intermittent mild mid abdominal pain, no current symptoms. No vaginal discharge or bleeding. No dysuria or flank pain. No hematochezia or hematemesis. She takes no daily medications. Only surgery is oral. LMP within the past month. TRAVEL OUTSIDE OF THE [place] IN LAST 30 DAYS: No - Related Data Allergies/Adverse Reactions: No Known Allergies Allergy (Verified 09/13/17 18:52) Past Medical History - General Information source: Patient - Social History Smoking Status: Never Smoker Frequency of alcohol use: None Drug Abuse: None Lives with: Family Family History: Arthritis, DM, Hyperlipidemia, Hypertension, Malignancy Pulmonary Medical History: Reports: Hx Bronchitis Neurological Medical History: Reports: Hx Migraine Renal/ Medical History: Denies: Hx Peritoneal Dialysis Musculoskeltal Medical History: Reports Hx Musculoskeletal Trauma Skin Medical History: Reports Hx Cellulitis Psychiatric Medical History: Reports: Hx Anxiety Past Surgical History: Reports: Hx Oral Surgery - wisdom teeth - Immunizations Immunizations up to date: Yes Hx Diphtheria, Pertussis, Tetanus Vaccination: Yes Review of Systems - Review of Systems Constitutional: No symptoms reported EENT: See HPI Cardiovascular: No symptoms reported Respiratory: No symptoms reported Gastrointestinal: See HPI Genitourinary: No symptoms reported Female Genitourinary: No symptoms reported Musculoskeletal: No symptoms reported Skin: No symptoms reported Hematologic/Lymphatic: No symptoms reported Neurological/Psychological: No symptoms reported Physical Exam - Vital signs Vitals: Temp Pulse Resp BP Pulse Ox 99.6 F 108 H 16 90/64 L 100 10/09/17 23:12 10/09/17 23:12 10/09/17 23:12 10/09/17 23:12 10/09/17 23:12 - Notes Notes: GENERAL: Alert, interacts well. No acute distress. HEAD: Normocephalic, atraumatic. EYES: Pupils equal, round, and reactive to light. Extraocular movements intact. ENT: Oral mucosa moist, tongue midline. [Nares patent, no nasal septal hematoma , TM's intact.] Minimal sinus congestion. NECK: Full range of motion. Supple. Trachea midline. LUNGS: Clear to auscultation bilaterally, no wheezes, rales, or rhonchi. No respiratory distress. HEART: Regular rate and rhythm. No murmur ABDOMEN: Soft, non-tender. Non-distended. Bowel sounds present in all 4 quadrants. EXTREMITIES: Moves all 4 extremities spontaneously. No edema, normal radial and dorsalis pedis pulses bilaterally. No cyanosis. BACK: no cervical, thoracic, lumbar midline tenderness. No saddle anesthesia, normal distal neurovascular exam. NEUROLOGICAL: Alert and oriented x3. Normal speech. [cranial nerves II through XII grossly intact]. PSYCH: Normal affect, normal mood. SKIN: Warm, dry, normal turgor. No rashes or lesions noted. Course - Re-evaluation Re-evalutation: Initial vitals show mild tachycardia and borderline hypotension. However patient's evaluation is extremely benign, she has mild congestion, very soft abdomen, she is smiling, laughing, well-appearing. Clear lungs, no complaints of dizziness, lightheadedness, palpitations, chest pain, shortness of breath. Patient fell asleep, she was aroused for vital signs, this shows mild hypotension, no tachycardia. Patient reporting intermittent diarrhea and resolved vomiting symptoms. Vague symptoms. Probably viral, sounds like she has allergies with repeated congestion that she wakes with up with every morning. Patient states she wants minimal medications. Urinalysis does not show dehydration, acidosis, infection, or glucose. Very low suspicion of acute abdomen or acute emergent pathology. Provided work release, discussed recommendations, follow-up, and return precautions. Patient states satisfaction and agreement. - Vital Signs Vital signs: Temp Pulse Resp BP Pulse Ox 98.1 F 84 18 100/64 98 10/10/17 03:55 10/10/17 03:55 10/10/17 03:55 10/10/17 03:55 10/10/17 03:55 Discharge - Discharge Clinical Impression: Vomiting and diarrhea, Sinus congestion Disposition: HOME, SELF-CARE Additional Instructions: Your urinalysis is normal, no dehydration, no evidence of action, no other abnormality. Your examination does not show any concerning findings. He most likely did have a virus to begin with, I recommend antiallergy medication because of your recurrent congestion and vomiting, recommend probiotics [id number] for diarrhea symptoms. If intermittent but frequent diarrhea, abdominal pain, and vomiting continue follow-up with primary care and gastroenterology referral listed. Return for any concerning symptoms including uncontrolled vomiting, severe abdominal pain, vomiting blood, black stools, or any other concerning symptoms. Prescriptions: Cetirizine HCl [All Day Allergy] 10 mg PO DAILY #30 capsule Famotidine [Pepcid 20 mg Tablet] 20 mg PO BID #20 tablet Forms: Return to Work Referrals: ZEINA TIDWELL MD [ACTIVE STAFF] - Follow up as needed
[2017-10-10 04:38] VITALS: BP 100/64
== END 2017-10-10 03:55 | disposition home or self-care (01) ==
LOC: ER 22:46
DX: R11.2 Nausea with vomiting, unspecified (principal); R19.7 Diarrhea, unspecified; R00.0 Tachycardia, unspecified; R09.81 Nasal congestion
CPT/HCPCS: 81001; 81025; 99284

== ENCOUNTER 2018-04-30 23:44 | Emergency (ER) | payer SELFPAY ==
[2018-05-01 01:30] LABS: A TYPE INFLUENZA AG NEGATIVE (NEGATIVE); B INFLUENZA AG NEGATIVE (NEGATIVE)
[2018-05-01] MEDS ORDERED: ACETAMINOPHEN 325 MG TABLET PO ONE (05:29)
[2018-05-01] MEDS ORDERED: ONDANSETRON 4 MG TAB.RAPDIS PO ONE (05:57)
--- NOTE | 2018-05-01 07:50 | ER Document Report ---
HPI - HPI Patient complains to provider of: Vomiting Time Seen by Provider: 05/01/18 05:27 Pain Level: 2 Context: Patient is a 22-year-old female presents to the emergency department for cough, congestion, general body aches, headache for the last 2 weeks. Patient states she feels as though she had a subjective fever today. Patient states she also vomited twice today which is inevitably why she presents to the emergency room. Patient is denying any abdominal pain at this time, denying dysuria, denying any vaginal discharge or diarrhea. Patient states last menstrual period was 04/11/2017. Past medical history: None Medications: None Allergies: None - CONSTITUTIONAL Constitutional: DENIES: Fever - RESPIRATORY Respiratory: REPORTS: Coughing - REPRODUCTIVE Reproductive: DENIES: : Past Medical History - General Information source: Patient - Social History Smoking Status: Never Smoker Chew tobacco use (# tins/day): No Frequency of alcohol use: Occasional Drug Abuse: None Family History: Arthritis, DM, Hyperlipidemia, Hypertension, Malignancy Patient has suicidal ideation: No Patient has homicidal ideation: No Pulmonary Medical History: Reports: Hx Bronchitis Neurological Medical History: Reports: Hx Migraine Renal/ Medical History: Denies: Hx Peritoneal Dialysis Musculoskeletal Medical History: Reports Hx Musculoskeletal Trauma Skin Medical History: Reports Hx Cellulitis Psychiatric Medical History: Reports: Hx Anxiety Past Surgical History: Reports: Hx Oral Surgery - wisdom teeth - Immunizations Immunizations up to date: Yes Hx Diphtheria, Pertussis, Tetanus Vaccination: Yes Vertical Provider Document - CONSTITUTIONAL Agree With Documented VS: Yes Notes: GENERAL: Alert, interacts well. No acute distress. HEAD: Normocephalic, atraumatic. No frontal or maxillary sinus tenderness noted EYES: Pupils equal, round, and reactive to light. Extraocular movements intact. ENT: Oral mucosa moist, tongue midline. Nares patent, TM's intact, nonerythematous, nonbulging bilaterally. Pharynx within normal limits no palatal petechiae or exudate noted, tonsils +2 bilaterally NECK: Full range of motion. Supple. Trachea midline. No lymphadenopathy appreciated LUNGS: Clear to auscultation bilaterally, no wheezes, rales, or rhonchi. No respiratory distress. HEART: Regular rate and rhythm. No murmur ABDOMEN: Soft, non-tender. Non-distended. Bowel sounds present in all 4 quadrants. EXTREMITIES: Moves all 4 extremities spontaneously. No edema, normal radial and dorsalis pedis pulses bilaterally. No cyanosis. BACK: no cervical, thoracic, lumbar midline tenderness. No saddle anesthesia, normal distal neurovascular exam. NEUROLOGICAL: Alert and oriented x3. Normal speech. cranial nerves II through XII grossly intact. PSYCH: Normal affect, normal mood. SKIN: Warm, dry, normal turgor. No rashes or lesions noted. - INFECTION CONTROL TRAVEL OUTSIDE OF THE [place] IN LAST 30 DAYS: No Course - Re-evaluation Re-evalutation: 05/01/18 07:52 Chest x-ray was ordered due to patient's cough and congestion for the last 2 weeks and subjective fever today. Unfortunately radiology is down at the moment and x-rays are not being sent to the radiologist to read. Patient is requesting discharge. I personally reviewed the x-ray and feels that there may be a right lower lobe pneumonia. Discussed at length treating the patient with doxycycline for community-acquired pneumonia. Patient again is requesting discharge and feels comfortable with that treatment plan. Patient is not tachycardic, not hypoxic, does not appear toxic. Patient able to p.o. fluids since Zofran administration. - Vital Signs Vital signs: Temp Pulse Resp BP Pulse Ox 98.0 F 90 16 120/72 100 05/01/18 05:05 05/01/18 05:05 05/01/18 05:05 05/01/18 05:05 05/01/18 05:05 Discharge - Discharge Clinical Impression: Pneumonia Qualifiers: Pneumonia type: due to unspecified organism Laterality: right Lung location: lower lobe of lung Qualified Code(s): J18.1 - Lobar pneumonia, unspecified organism Condition: Stable Disposition: HOME, SELF-CARE Instructions: Pneumonia ([facility]) Additional Instructions: As we discussed you have been seen and treated in the emergency department for pneumonia. Please take antibiotics as prescribed. Please follow-up with your primary care provider in the next 24-48 hours. Please return to the emergency room for any other concerning symptoms Prescriptions: Benzonatate [Tessalon Perles 100 mg Capsule] 100 mg PO Q8HP PRN #40 capsule PRN Reason: Doxycycline Hyclate 100 mg PO BID #14 capsule Mometasone Furoate [Nasonex] 1 spray NS Q12 #1 spray.pump Ondansetron [Zofran Odt 4 mg Tablet] 1 - 2 tab PO Q4H PRN #15 tab.rapdis PRN Reason: For Nausea/Vomiting Forms: Return to Work
--- NOTE | 2018-05-01 08:00 | RADIOLOGY REPORT (SQ) ---
EXAM DESCRIPTION: XR CHEST 2 VIEWS COMPLETED DATE/TME: 05/01/2018 05:57 CLINICAL HISTORY: sob COMPARISON: 02/22/2015 FINDINGS: Frontal and lateral views of the chest. The cardiomediastinal silhouette has normal size and contour. No consolidation, pneumothorax, or pleural effusion. No displaced rib fractures identified. Upper abdominal soft tissues are unremarkable. IMPRESSION: 1. No acute pulmonary process identified.
[2018-05-01 08:39] VITALS: BP 128/75
== END 2018-05-01 08:39 | disposition home or self-care (01) ==
LOC: ER 23:44
DX: J18.1 Lobar pneumonia, unspecified organism (principal); R11.10 Vomiting, unspecified; R05 Cough; R09.81 Nasal congestion; M79.10 Myalgia, unspecified site; R51 Headache; R50.9 Fever, unspecified
CPT/HCPCS: 99284; 87804; 71046; S0119

== ENCOUNTER 2018-08-29 04:47 | Emergency (ER) | payer SELFPAY ==
[2018-08-29] MEDS ORDERED: PROMETHAZINE HCL 25 MG TABLET PO ONE (05:21)
[2018-08-29] MEDS ORDERED: OXYCODONE-ACETAMINOPHEN 5-325 MG TABLET PO ONE (05:21)
--- NOTE | 2018-08-29 05:22 | ER Document Report ---
ED GI/ - General Chief Complaint: Abdominal Pain Stated Complaint: FLANK PAIN Time Seen by Provider: 08/29/18 05:10 Notes: Patient is a 22-year-old female that comes to the emergency department for chief complaint of left upper quadrant pain. Pain started today, it is intermittently sharp, she states when she is sitting or lying down it feels worse than when she is active. She reports some nausea but she denies vomiting. She denies flank pain, lower abdominal pain, dysuria, fever/chills, injury. She denies any daily medications, surgeries, or past medical history. She smokes, reports occasional alcohol, denies recreational drugs. Denies heavy caffeine or heavy [id number]-[id number] drug use. TRAVEL OUTSIDE OF THE [place] IN LAST 30 DAYS: No - Related Data Allergies/Adverse Reactions: No Known Allergies Allergy (Verified 09/13/17 18:52) Past Medical History - General Information source: Patient - Social History Smoking Status: Never Smoker Frequency of alcohol use: Occasional Drug Abuse: None Lives with: Family Family History: Arthritis, DM, Hyperlipidemia, Hypertension, Malignancy Pulmonary Medical History: Reports: Hx Bronchitis Neurological Medical History: Reports: Hx Migraine Renal/ Medical History: Denies: Hx Peritoneal Dialysis Musculoskeletal Medical History: Reports Hx Musculoskeletal Trauma Skin Medical History: Reports Hx Cellulitis Psychiatric Medical History: Reports: Hx Anxiety Past Surgical History: Reports: Hx Oral Surgery - wisdom teeth - Immunizations Immunizations up to date: Yes Hx Diphtheria, Pertussis, Tetanus Vaccination: Yes Review of Systems - Review of Systems Constitutional: No symptoms reported EENT: No symptoms reported Cardiovascular: No symptoms reported Respiratory: No symptoms reported Gastrointestinal: See HPI Genitourinary: No symptoms reported Female Genitourinary: No symptoms reported Musculoskeletal: No symptoms reported Skin: No symptoms reported Hematologic/Lymphatic: No symptoms reported Neurological/Psychological: No symptoms reported Physical Exam - Vital signs Vitals: Temp Pulse Resp BP Pulse Ox 98 F 99 18 140/92 H 99 08/29/18 04:54 08/29/18 04:54 08/29/18 04:54 08/29/18 04:54 08/29/18 04:54 - Notes Notes: GENERAL: Alert, interacts well. No acute distress. HEAD: Normocephalic, atraumatic. EYES: Pupils equal, round, and reactive to light. Extraocular movements intact. ENT: Oral mucosa moist, tongue midline. Oropharynx unremarkable. NECK: Full range of motion. Supple. Trachea midline. LUNGS: Clear to auscultation bilaterally, no wheezes, rales, or rhonchi. No respiratory distress. HEART: Regular rate and rhythm. No murmur ABDOMEN: Mild left upper quadrant pain. Remaining abdomen unremarkable. No guarding or rigidity. Non-distended. Bowel sounds present in all 4 quadrants. GENITOURINARY: Deferred EXTREMITIES: Moves all 4 extremities spontaneously. No edema, normal radial and dorsalis pedis pulses bilaterally. No cyanosis. BACK: no cervical, thoracic, lumbar midline tenderness. No saddle anesthesia, normal distal neurovascular exam. NEUROLOGICAL: Alert and oriented x3. Normal speech. . PSYCH: Normal affect, normal mood. SKIN: Warm, dry, normal turgor. No rashes or lesions noted. Course - Re-evaluation Re-evalutation: Patient with very specific but mild left upper quadrant pain. She is able to tolerate food, she reports some nausea. She is improved after medications although symptoms did not completely resolved. She remains extremely well- appearing. Abdomen is generally benign. CBC, chemistry, lipase unremarkable. test negative. Urine unremarkable. Based on her location of pain, I discussed possible risk factors, patient does drink alcohol, she is eats constant spicy food, I do suspect this is gastritis related based on her work-up, location of pain, and benign presentation. I have very low suspicion of acute abdomen. I discussed the work-up, recommendation for treatment, follow-up, and return precautions in detail with patient. Patient states satisfaction and agreement with plan. Stable at time of discharge. - Vital Signs Vital signs: Temp Pulse Resp BP Pulse Ox 98.0 F 99 18 139/82 H 99 08/29/18 06:46 08/29/18 04:54 08/29/18 04:54 08/29/18 06:46 08/29/18 04:54 - Laboratory Result Diagrams: 08/29/18 05:31 08/29/18 05:31 Laboratory results interpreted by me: 08/29/18 08/29/18 05:31 05:44 Glucose 137 H Urine Blood LARGE H Discharge - Discharge Clinical Impression: Left upper quadrant pain Condition: Stable Disposition: HOME, SELF-CARE Additional Instructions: Your symptoms and examination indicate gastritis/esophagitis (inflammation of your upper gastrointestinal tract). Take Phenergan for nausea, take Carafate and Pepcid as prescribed to help treat this, you can take additional Rolaids, Tums, Maalox, etc. if needed. You can take Tylenol for pain. Avoid NSAIDs, alcohol, smoking, caffeine, spicy food. Start with clear fluids, progress to bland diet. Follow-up with primary care for additional evaluation and treatment including possible H. pylori testing. Return if you worsen including uncontrolled vomiting, vomiting blood, black stools, severe pain, fever of 100.4 or greater, or any other concerning or worsening symptoms. Prescriptions: Famotidine [Pepcid 20 mg Tablet] 20 mg PO BID #20 tablet Promethazine HCl [Phenergan 25 mg Tablet] 25 mg PO Q6H PRN #15 tablet PRN Reason: Sucralfate [Carafate 1 gm Tablet] 1 gm PO QID #20 tablet Forms: Return to Work
[2018-08-29 05:42] LABS: ABSOLUTE EOSINOPHILS # (AUTO) 0.1 10^3/uL (0.0-0.6); ABSOLUTE LYMPHOCYTES (AUTO) 1.7 10^3/uL (0.5-4.7); ABSOLUTE MONOCYTES (AUTO) 0.4 10^3/uL (0.1-1.4); ABSOLUTE NEUT (AUTO) 3.3 10^3/uL (1.7-8.2); BASOPHILS % (AUTO) 0.6 % (0-2); EOSINOPHILS % (AUTO) 1.2 % (0-6); HEMATOCRIT 38.6 % (36.0-47.0); HEMOGLOBIN 13.5 g/dL (12.0-15.5); LYMPHOCYTES % (AUTO) 31.6 % (13-45); MEAN CORPUSCULAR HEMOGLOBIN 32.1 pg (27.0-33.4); MEAN CORPUSCULAR VOLUME 92 fl (80-97); MONOCYTES % (AUTO) 7.2 % (3-13); PLATELET COUNT 256 10^3/uL (150-450); RED BLOOD COUNT 4.22 10^6/uL (3.72-5.28); RED CELL DISTRIBUTION WIDTH 12.2 % (11.5-14.0); SEGMENTED NEUTROPHILS % (AUTO) 59.4 % (42-78); TOTAL CELLS COUNTED % (AUTO) 100 %; WHITE BLOOD COUNT 5.5 10^3/uL (4.0-10.5)
[2018-08-29 05:59] LABS: ALANINE AMINOTRANSFERASE 43 U/L (9-52); ALBUMIN 3.7 g/dL (3.5-5.0); ALKALINE PHOSPHATASE 65 U/L (38-126); ANION GAP 10 (5-19); ASPARTATE AMINO TRANSFERASE 23 U/L (14-36); BILIRUBIN,DIRECT 0.2 mg/dL (0.0-0.4); BILIRUBIN,TOTAL 0.4 mg/dL (0.2-1.3); BLOOD UREA NITROGEN 9 mg/dL (7-20); CALCIUM 9.2 mg/dL (8.4-10.2); CARBON DIOXIDE 26 mmol/L (22-30); CHLORIDE 104 mmol/L (98-107); GLUCOSE 137 mg/dL (75-110); POTASSIUM 3.9 mmol/L (3.6-5.0); SODIUM 140.3 mmol/L (137-145); TOTAL PROTEIN 6.9 g/dL (6.3-8.2)
[2018-08-29 06:11] LABS: APPEARANCE,URINE SLIGHTLY-CLOUDY; BILIRUBIN,URINE NEGATIVE (NEGATIVE); COLOR,URINE YELLOW; GLUCOSE, URINE NEGATIVE (NEGATIVE); KETONES,URINE NEGATIVE (NEGATIVE); LEUKOCYTE ESTERASE,URINE NEGATIVE (NEGATIVE); NITRITE,URINE NEGATIVE (NEGATIVE); PROTEIN,URINE NEGATIVE (NEGATIVE); URINE SPECIFIC GRAVITY 1.006; UROBILINOGEN,URINE NEGATIVE mg/dL (<2.0)
[2018-08-29] MEDS ORDERED: HYDROCODONE/ACETAMINOPHEN 5-325 MG (6 TAB/ER DISP) PO PRN (06:20)
[2018-08-29] MEDS ORDERED: ONDANSETRON ODT 4 MG TAB (6 TAB/ER DISP) PO PRN (06:36)
[2018-08-29 06:47] VITALS: BP 139/82
== END 2018-08-29 06:47 | disposition home or self-care (01) ==
LOC: ER 04:47
DX: R10.12 Left upper quadrant pain (principal); R10.9 Unspecified abdominal pain; R11.0 Nausea
CPT/HCPCS: 36415; 80053; 81001; 83690; 84703; 85025; 99284

== ENCOUNTER 2018-09-22 16:50 | Emergency (ER) | payer SELFPAY ==
[2018-09-22] MEDS ORDERED: DEXAMETHASONE SOD PHOS INJ 10 MG/1 ML VIAL IM ONE (17:42)
[2018-09-22] MEDS ORDERED: DIPHENHYDRAMINE HCL 50 MG/ML VIAL IM ONE (17:42)
[2018-09-22] MEDS ORDERED: FAMOTIDINE 20 MG TABLET PO ONE (17:43)
--- NOTE | 2018-09-22 17:44 | ER Document Report ---
ED Medical Screen (RME) - General Chief Complaint: Allergic Reaction Stated Complaint: POSSIBLE ALLERGIC REACTION Time Seen by Provider: 09/22/18 17:19 Mode of Arrival: Ambulatory Information source: Patient Notes: Patient presents emergency department with reports of hives for the past 2 days. Reports she is been taking Benadryl without relief of symptoms. Patient has generalized hives. Denies new lotions new medications new detergent. She reports she is not sure which she is allergic to. Also reports she feels like she is having difficulty getting a deep breath. No other symptoms such as fever vomiting diarrhea. I have greeted and performed a rapid initial assessment of this patient. A comprehensive ED assessment and evaluation of the patient, analysis of test results and completion of the medical decision making process will be conducted by additional ED providers. Dictation of this chart was performed using voice recognition software; therefore, there may be some unintended grammatical errors. TRAVEL OUTSIDE OF THE [place] IN LAST 30 DAYS: No - Related Data Allergies/Adverse Reactions: No Known Allergies Allergy (Verified 09/13/17 18:52) Past Medical History Pulmonary Medical History: Reports: Hx Bronchitis Neurological Medical History: Reports: Hx Migraine Renal/ Medical History: Denies: Hx Peritoneal Dialysis Musculoskeltal Medical History: Reports Hx Musculoskeletal Trauma Skin Medical History: Reports Hx Cellulitis Psychiatric Medical History: Reports: Hx Anxiety Past Surgical History: Reports: Hx Oral Surgery - wisdom teeth - Immunizations Immunizations up to date: Yes Hx Diphtheria, Pertussis, Tetanus Vaccination: Yes Physical Exam - Vital signs Vitals: Temp Pulse Resp BP Pulse Ox 97.9 F 110 H 16 148/83 H 98 09/22/18 16:58 09/22/18 16:58 09/22/18 16:58 09/22/18 16:58 09/22/18 16:58 Course - Vital Signs Vital signs: Temp Pulse Resp BP Pulse Ox 97.9 F 110 H 16 148/83 H 98 09/22/18 16:58 09/22/18 16:58 09/22/18 16:58 09/22/18 16:58 09/22/18 16:58
--- NOTE | 2018-09-22 20:24 | ER Document Report ---
ED General - General Chief Complaint: Allergic Reaction Stated Complaint: POSSIBLE ALLERGIC REACTION Time Seen by Provider: 09/22/18 17:19 Mode of Arrival: Ambulatory TRAVEL OUTSIDE OF THE [place] IN LAST 30 DAYS: No - HPI Notes: Patient is a 22-year-old female who presents to the emergency department for evaluation. She states she has had hives intermittently for the last 2 days. She takes Benadryl, they seem to improve, then they come right back. She denies any new detergents, lotions, new exposures. She denies any swelling of her lips, mouth, tongue. She denies any difficulty breathing or swallowing. - Related Data Allergies/Adverse Reactions: No Known Allergies Allergy (Verified 09/13/17 18:52) Past Medical History - General Information source: Patient - Social History Smoking Status: Unknown if Ever Smoked Family History: Arthritis, DM, Hyperlipidemia, Hypertension, Malignancy Patient has suicidal ideation: No Patient has homicidal ideation: No Pulmonary Medical History: Reports: Hx Bronchitis Neurological Medical History: Reports: Hx Migraine Renal/ Medical History: Denies: Hx Peritoneal Dialysis Musculoskeletal Medical History: Reports Hx Musculoskeletal Trauma Skin Medical History: Reports Hx Cellulitis Psychiatric Medical History: Reports: Hx Anxiety Past Surgical History: Reports: Hx Oral Surgery - wisdom teeth - Immunizations Immunizations up to date: Yes Hx Diphtheria, Pertussis, Tetanus Vaccination: Yes Review of Systems - Review of Systems Constitutional: No symptoms reported EENT: No symptoms reported Cardiovascular: No symptoms reported Respiratory: No symptoms reported Gastrointestinal: No symptoms reported Genitourinary: No symptoms reported Musculoskeletal: No symptoms reported Skin: No symptoms reported Neurological/Psychological: No symptoms reported Physical Exam - Vital signs Vitals: Temp Pulse Resp BP Pulse Ox 97.9 F 110 H 16 148/83 H 98 09/22/18 16:58 09/22/18 16:58 09/22/18 16:58 09/22/18 16:58 09/22/18 16:58 - Notes Notes: Vital signs reviewed, please refer to chart. Head is normocephalic, atraumatic. Pupils equal round, reactive to light. Lips without swelling, tongue without edema. No pharyngeal edema. Neck is supple without meningismus. Heart is regular rate and rhythm. Lungs are clear to auscultation bilaterally. Abdomen is soft, nontender, normoactive bowel sounds throughout. Extremities without cyanosis, clubbing. Posterior calves are nontender. Peripheral pulses are equal. Skin is warm and dry. She does have some very rare urticaria noted to bilateral arms, minimal erythema and calor. This is after treatment. Patient is awake, alert, neurological exam is nonfocal. Course - Re-evaluation Re-evalutation: 09/22/18 20:22 Patient presents emergency department for evaluation. She has urticaria. She does not appear to have any preceding viral illness, no obvious new exposures. Patient is improving after treatment via triage. We will go ahead and send her home with a prednisone taper. She is to continue Benadryl as needed. She is to return to the ED with worsening or new concerning symptoms, otherwise follow-up with primary care. - Vital Signs Vital signs: Temp Pulse Resp BP Pulse Ox 97.9 F 110 H 16 148/83 H 98 09/22/18 16:58 09/22/18 16:58 09/22/18 16:58 09/22/18 16:58 09/22/18 16:58 Discharge - Discharge Clinical Impression: Urticaria Condition: Stable Disposition: HOME, SELF-CARE Instructions: Acute Urticaria ([facility]) Additional Instructions: No clear reason was identified for your urticaria here today. Continue to take the Benadryl as needed. Watch for drowsiness this medication. Take all the prednisone as directed until gone, starting tomorrow. Follow-up with your primary care physician next week. Return to the emergency department with worsening or new concerning symptoms of any sort.
[2018-09-22 20:37] VITALS: BP 129/81
== END 2018-09-22 20:37 | disposition home or self-care (01) ==
LOC: ER 16:50
DX: L50.9 Urticaria, unspecified (principal)
CPT/HCPCS: 99283; 96372; J1200; J1100

== ENCOUNTER 2018-10-03 09:01 | Observation (INO) | payer SELFPAY ==
--- NOTE | 2018-10-03 09:37 | ER Document Report ---
ED Medical Screen (RME) - General Chief Complaint: Abdominal Pain Stated Complaint: ABDOMINAL PAIN Time Seen by Provider: 10/03/18 09:27 Mode of Arrival: Ambulatory Information source: Patient Notes: 22-year-old female presents to ED for right upper quadrant abdominal pain up into her lower right lung. She states that times the pain is so bad it is hard to catch her breath. She states is worse after she eats. She states she ate about 530 6:00 and had a bagel with eggs and cheese. She states the pain is severe right now. She states the pain is also worse if she lays on her right side. She is alert oriented respirations regular and unlabored speaking in full sentences. She states she did have dry heaves this morning but did not vomit. Last menstrual period was about 2 weeks ago. She states she smokes 1 pack a mild maybe every week or so. I have greeted and performed a rapid initial assessment of this patient. A comprehensive ED assessment and evaluation of the patient, analysis of test results and completion of medical decision making process will be conducted by an additional ED providers. Dictation of this chart was performed using voice recognition software; th erefore, there may be some unintended grammatical errors. TRAVEL OUTSIDE OF THE [place] IN LAST 30 DAYS: No - Related Data Allergies/Adverse Reactions: No Known Allergies Allergy (Verified 10/03/18 09:08) Past Medical History Pulmonary Medical History: Reports: Hx Bronchitis Neurological Medical History: Reports: Hx Migraine Renal/ Medical History: Denies: Hx Peritoneal Dialysis Musculoskeltal Medical History: Reports Hx Musculoskeletal Trauma Skin Medical History: Reports Hx Cellulitis Psychiatric Medical History: Reports: Hx Anxiety Past Surgical History: Reports: Hx Oral Surgery - wisdom teeth - Immunizations Immunizations up to date: Yes Hx Diphtheria, Pertussis, Tetanus Vaccination: Yes Physical Exam - Vital signs Vitals: Temp Pulse Resp BP Pulse Ox 99.0 F 120 H 18 148/85 H 98 10/03/18 09:13 10/03/18 09:13 10/03/18 09:13 10/03/18 09:13 10/03/18 09:13 Course - Vital Signs Vital signs: Temp Pulse Resp BP Pulse Ox 99.0 F 120 H 18 148/85 H 98 10/03/18 09:13 10/03/18 09:13 10/03/18 09:13 10/03/18 09:13 10/03/18 09:13
[2018-10-03] MEDS ORDERED: NORMAL SALINE 1000 ML 1,000 ML IV ONE ×2 (09:38→13:21)
[2018-10-03] MEDS ORDERED: ONDANSETRON HCL INJ/PF 4 MG/2 ML SDV IV ONE ×2 (09:38→13:22)
[2018-10-03 09:58] LABS: ABSOLUTE BASOPHILS # (AUTO) 0.1 10^3/uL (0.0-0.2); ABSOLUTE EOSINOPHILS # (AUTO) 0.1 10^3/uL (0.0-0.6); ABSOLUTE LYMPHOCYTES (AUTO) 3.2 10^3/uL (0.5-4.7); ABSOLUTE NEUT (AUTO) 11.6 10^3/uL (1.7-8.2); BASOPHILS % (AUTO) 0.3 % (0-2); EOSINOPHILS % (AUTO) 0.5 % (0-6); HEMATOCRIT 41.7 % (36.0-47.0); HEMOGLOBIN 14.4 g/dL (12.0-15.5); LYMPHOCYTES % (AUTO) 20.2 % (13-45); MEAN CORPUSCULAR HEMOGLOBIN 32.3 pg (27.0-33.4); MEAN CORPUSCULAR HGB CONC 34.5 g/dL (32.0-36.0); MEAN CORPUSCULAR VOLUME 94 fl (80-97); MONOCYTES % (AUTO) 6.5 % (3-13); PLATELET COUNT 337 10^3/uL (150-450); RED BLOOD COUNT 4.46 10^6/uL (3.72-5.28); RED CELL DISTRIBUTION WIDTH 12.7 % (11.5-14.0); SEGMENTED NEUTROPHILS % (AUTO) 72.5 % (42-78); TOTAL CELLS COUNTED % (AUTO) 100 %
[2018-10-03 10:07] LABS: APPEARANCE,URINE SLIGHTLY-CLOUDY; BILIRUBIN,URINE NEGATIVE (NEGATIVE); COLOR,URINE YELLOW; GLUCOSE, URINE NEGATIVE (NEGATIVE); KETONES,URINE NEGATIVE (NEGATIVE); LEUKOCYTE ESTERASE,URINE SMALL (NEGATIVE); NITRITE,URINE NEGATIVE (NEGATIVE); PROTEIN,URINE NEGATIVE (NEGATIVE); URINE SPECIFIC GRAVITY 1.015; UROBILINOGEN,URINE NEGATIVE mg/dL (<2.0)
[2018-10-03 10:18] LABS: ALANINE AMINOTRANSFERASE 39 U/L (9-52); ALBUMIN 4.1 g/dL (3.5-5.0); ALKALINE PHOSPHATASE 73 U/L (38-126); ANION GAP 9 (5-19); ASPARTATE AMINO TRANSFERASE 18 U/L (14-36); BILIRUBIN,DIRECT 0.3 mg/dL (0.0-0.4); BILIRUBIN,TOTAL 0.5 mg/dL (0.2-1.3); BLOOD UREA NITROGEN 10 mg/dL (7-20); CALCIUM 9.5 mg/dL (8.4-10.2); CARBON DIOXIDE 29 mmol/L (22-30); CHLORIDE 100 mmol/L (98-107); GLUCOSE 202 mg/dL (75-110); LIPASE 208.8 U/L (23-300); POTASSIUM 3.8 mmol/L (3.6-5.0); SODIUM 138.4 mmol/L (137-145); TOTAL PROTEIN 7.6 g/dL (6.3-8.2)
--- NOTE | 2018-10-03 12:53 | RADIOLOGY REPORT (SQ) ---
EXAM DESCRIPTION: U/S ABDOMEN LIMITED W/O DOP COMPLETED DATE/TIME: 10/03/2018 12:21 pm REASON FOR STUDY: ruq pain COMPARISON: None. TECHNIQUE: Dynamic and static grayscale images acquired of the abdomen and recorded on PACS. Additio nal selected color Doppler and spectral images recorded. LIMITATIONS: None. FINDINGS: PANCREAS: No mass in the head or body of the pancreas. The tail was not well seen. LIVER: Increased echogenicity. No mass. LIVER VASCULATURE: Normal directional flow of the main portal vein and hepatic veins. GALLBLADDER: No stones. Normal wall thickness. No pericholecystic fluid. ULTRASOUND-DETECTED QUIÑONES'S SIGN: Negative. INTRAHEPATIC DUCTS AND COMMON DUCT: CBD and intrahepatic ducts normal caliber. No filling defects. INFERIOR VENA CAVA: Not imaged. AORTA: No aneurysm. RIGHT KIDNEY: Normal size, 10.6 cm. No masses. No hydronephrosis. PERITONEAL AND RIGHT PLEURAL SPACE: No ascites or effusions. OTHER: No other significant findings. IMPRESSION: Hepatic steatosis. TECHNICAL DOCUMENTATION: JOB ID: [id number] [email or web address]- All Rights Reserved Reading location - IP/workstation name: [email or web address]
[2018-10-03] MEDS ORDERED: KETOROLAC TROMETHAMINE INJ/PF 30 MG/1 ML SDV IV ONE ×2 (13:22→14:17)
--- NOTE | 2018-10-03 13:23 | ER Document Report ---
ED General - General Chief Complaint: Abdominal Pain Stated Complaint: ABDOMINAL PAIN Time Seen by Provider: 10/03/18 09:27 Mode of Arrival: Ambulatory TRAVEL OUTSIDE OF THE [place] IN LAST 30 DAYS: No - HPI Notes: 22-year-old female to the emergency department with complaints of right upper and right lower abdominal pain is been coming and going for the past 6 months. States that this morning she had increasing the worsening pain with nausea so she decided to seek medical treatment. States that she was seen 2 weeks ago for the abdominal pain was placed on steroids. States that she finished the steroids several days ago. Denies any fevers, chills, chest pain, shortness of breath, blood in her stool, history of gallstones, history of PUD, history of inflammatory bowel disease. States she has not seen a GI specialist since this all began. She does not smoke. She denies vaginal discharge, her last period was 2 weeks ago. Would like testing for STDs as an ex-boyfriend told her that she should probably get tested. She denies any symptoms. - Related Data Allergies/Adverse Reactions: No Known Allergies Allergy (Verified 10/03/18 09:08) Past Medical History - General Information source: Patient - Social History Smoking Status: Current Some Day Smoker Chew tobacco use (# tins/day): No Frequency of alcohol use: None Drug Abuse: None Family History: Arthritis, DM, Hyperlipidemia, Hypertension, Malignancy Patient has suicidal ideation: No Patient has homicidal ideation: No Pulmonary Medical History: Reports: Hx Bronchitis Neurological Medical History: Reports: Hx Migraine Renal/ Medical History: Denies: Hx Peritoneal Dialysis Musculoskeletal Medical History: Reports Hx Musculoskeletal Trauma Skin Medical History: Reports Hx Cellulitis Psychiatric Medical History: Reports: Hx Anxiety Past Surgical History: Reports: Hx Oral Surgery - wisdom teeth - Immunizations Immunizations up to date: Yes Hx Diphtheria, Pertussis, Tetanus Vaccination: Yes Review of Systems - Review of Systems Constitutional: denies: Chills, Diaphoresis, Fever EENT: No symptoms reported Cardiovascular: denies: Chest pain, Palpitations, Syncope, Dizziness, Lightheaded Respiratory: denies: Cough, Short of breath Gastrointestinal: Abdominal pain, Nausea. denies: Diarrhea, Vomiting, Constipation, Black stools, Rectal bleeding Genitourinary: denies: Frequency, Flank pain, Urgency Female Genitourinary: denies: Vaginal discharge, Vaginal bleeding, Vaginal odor, Painful intercourse Musculoskeletal: No symptoms reported Skin: No symptoms reported Hematologic/Lymphatic: No symptoms reported Neurological/Psychological: No symptoms reported -: Yes All other systems reviewed and negative Physical Exam - Vital signs Vitals: Temp Pulse Resp BP Pulse Ox 99.0 F 120 H 18 148/85 H 98 10/03/18 09:13 10/03/18 09:13 10/03/18 09:13 10/03/18 09:13 10/03/18 09:13 Interpretation: Tachycardic - General General appearance: Other In distress: Mild - Mild pain distress - HEENT Head: Normocephalic, Atraumatic Eyes: Normal Pupils: PERRL - Respiratory Respiratory status: No respiratory distress Chest status: Nontender Breath sounds: Normal Chest palpation: Normal - Cardiovascular Rhythm: Regular Heart sounds: Normal auscultation Murmur: No - Abdominal Inspection: Obese Distension: No distension. No: Fluid wave Bowel sounds: Normal Tenderness: Tender - + TTP over the RUQ and RLQ. Negative Rovsing's Organomegaly: No organomegaly - Genitourinary External exam: Normal Speculum exam: Normal, Cervix closed, Vaginal discharge - small amount of white discharge.. No: Lesions, Vaginal lacerations Vaginal bleeding: None Bimanuel exam: No: Cervical motion tender, Bladder/Urethral tender, Adnexal mass, Adnexal tenderness, Uterus enlarged - Back Back: Normal, Nontender - Extremities General upper extremity: Normal inspection, Nontender, Normal color, Normal ROM, Normal temperature General lower extremity: Normal inspection, Nontender, Normal color, Normal ROM, Normal temperature, Normal weight bearing. No: Yola's sign - Neurological Neuro grossly intact: Yes Cognition: Normal Orientation: AAOx4 [place] Coma Scale Eye Opening: Spontaneous [place] Coma Scale Verbal: Oriented [place] Coma Scale Motor: Obeys Commands [place] Coma Scale Total: 15 Speech: Normal Motor strength normal: LUE, RUE, LLE, RLE Sensory: Normal - Psychological Associated symptoms: Normal affect, Normal mood - Skin Skin Temperature: Warm Skin Moisture: Dry Skin Color: Normal Course - Vital Signs Vital signs: Temp Pulse Resp BP Pulse Ox 98.2 F 95 16 121/74 98 10/03/18 14:46 10/03/18 14:46 10/03/18 14:46 10/03/18 14:46 10/03/18 14:46 - Laboratory Result Diagrams: 10/03/18 09:44 10/03/18 09:44 Laboratory results interpreted by me: 10/03/18 10/03/18 10/03/18 09:44 09:44 09:44 WBC 16.0 H Absolute Neutrophils 11.6 H Glucose 202 H Ur Leukocyte Esterase SMALL H Chlamydia DNA (PCR) 10/03/18 15:50 WBC Absolute Neutrophils Glucose Ur Leukocyte Esterase Chlamydia DNA (PCR) DETECTED H - Transfer of Care Notes: 10/03/[address] reading with predominantly concerns for possible inflammatory bowel disease process. However there is mesenteric stranding in that right lower quadrant. Commodity Trader suggest a low suspicion for acute appendicitis. Discussed this with my ER attending Dr. Doyle. He suggest calling the surgeon to discuss CT reading and further management. Dr. Rao, general surgeon. We discussed CT impression, leukocytosis, and patinet's physicial exam. He suspects likely again not acute appendicitis, but does think she needs admission. He will be happy to consult if admitted to hospitalist team. Spoke with Dr. Dutton about patient. Accepts patient's onto his service. Would like blood cultures and start on Abx - will give Cipro and Flagyl. He will come see patient. Impression: Leukocytosis, abnormal CT with bowel wall thickening, most concerning for IBD. Abdominal pain. Will plan on admission for further management. Discharge - Discharge Clinical Impression: Bowel wall thickening, Abdominal pain, Leukocytosis Condition: Stable Disposition: ADMITTED INPATIENT Admitting Provider: Nessa (Hospitalist) Unit Admitted: Medical Floor
--- NOTE | 2018-10-03 14:29 | RADIOLOGY REPORT (SQ) ---
EXAM DESCRIPTION: CT ABD/PELVIS WITH IV ONLY COMPLETED DATE/TIME: 10/03/2018 1:59 pm REASON FOR STUDY: abd pain, leukocytosis COMPARISON: Abdominal ultrasound 10/03/2018 TECHNIQUE: CT scan of the abdomen and pelvis performed using helical scanning technique with dynamic intravenous contrast injection. No oral contrast. Images reviewed with lung, soft tissue, and bone windows. Reconstructed coronal and sagittal MPR images reviewed. Delayed images for evaluation of the urinary system also acquired. All images stored on PACS. All CT scanners at this facility use dose modulation, iterative reconstruction, and/or weight based d osing when appropriate to reduce radiation dose to as low as reasonably achievable (ALARA). [facility]: Dose Right [facility]: CareDose [facility]: Dose Right [facility]: Teradose 4D [facility]: My Single Point CONTRAST TYPE AND DOSE: contrast/concentration: Isovue 350.00 mg/ml; Total Contrast Delivered: 100.0 ml; Total Saline Delivered: 70.0 ml RENAL FUNCTION: None required. The patient is less than 50 years old. RADIATION DOSE: CT Rad equipment meets quality standard of care and radiation dose reduction techniq ues were employed. CTDIvol: NaN - NaN mGy. DLP: 0 mGy-cm.. LIMITATIONS: None. FINDINGS: On coronal reconstruction images 27 through 36, there is right lower quadrant inflammation . Soft tissue stranding in the fat surrounding the distal ileum, ileocecal valve and cecum is presen t with trace free fluid. The appendix is dorsal to this area it inflammation, fills with air, and sp[place] s no surrounding inflammatory change, normal in appearance. Findings are worrisome for inflammation along the distal ileum and inflammatory bowel disease. Remainder of the bowel is otherwise unremarkable. No free intraperitoneal air or. No CT signs of sejal wel obstruction. No findings worrisome for abscess. LOWER CHEST: No significant findings. No nodules or infiltrates. LIVER: Normal size. No masses. No dilated ducts. SPLEEN: Normal size. No focal lesions. PANCREAS: No masses. No significant calcifications. No adjacent inflammation or peripancreatic fluid collections. Pancreatic duct not dilated. GALLBLADDER: No identified stones by CT criteria. No inflammatory changes to suggest cholecystitis. ADRENAL GLANDS: No significant masses or asymmetry. RIGHT KIDNEY AND URETER: No solid masses. No significant calcifications. No hydronephrosis or hyd roureter. LEFT KIDNEY AND URETER: No solid masses. No significant calcifications. No hydronephrosis or hydr oureter. AORTA AND VESSELS: No aneurysm. No dissection. Renal arteries, SMA, celiac without stenosis. RETROPERITONEUM: No retroperitoneal adenopathy, hemorrhage or masses. BOWEL AND PERITONEAL CAVITY: As above APPENDIX: Normal, best shown on coronal reconstruction image 34 and 35. PELVIS: No mass. No free fluid. Normal bladder. Normal size female pelvic organs ABDOMINAL WALL: No masses. No hernias. BONES: No significant or acute findings. OTHER: No other significant finding. IMPRESSION: Right lower quadrant mesenteric fatty inflammation along the cecum and ileocecal valve/d istal ileum. This could indicate inflammatory bowel disease. Appendicitis is possible but considere d less likely, given that the appendix is dorsal to this area, and fills with air. This suggests aga inst acute appendicitis. Findings discussed with Stacy Cm in the emergency room TECHNICAL DOCUMENTATION: JOB ID: [id number] Quality ID # [id number]: Final reports with documentation of one or more dose reduction techniques (e.g., Au tomated exposure control, adjustment of the mA and/or kV according to patient size, use of iterative reconstruction technique) 2010 [employer]- All Rights Reserved Reading location - IP/workstation name: [email or web address]
[2018-10-03 16:01] LABS: T.VAGINALIS (WET MOUNT) NO TRICHOMONAS SEEN; WBCS (WET MOUNT) 3+ WBCS SEEN; YEAST (WET MOUNT) NO YEAST SEEN
[2018-10-03 16:02] LABS: BACTERIA (WET MOUNT) 4+ BACTERIA SEEN; EPITHELIALS (WET MOUNT) 3+ EPITHELIALS SEEN
[2018-10-03] MEDS ORDERED: MORPHINE SULFATE 10 MG/ML INJ IV ONE (16:37)
[2018-10-03 17:28] LABS: CHLAM PCR DETECTED (NOT DETECT)
[2018-10-03] MEDS ORDERED: METRONIDAZOLE 500 MG/NS RTU 500 MG/100 ML RTUPB IV ONE (18:00)
[2018-10-03] MEDS ORDERED: DEXTROSE 50%-WATER 25 GM/50 ML DISP.SYRIN IV PRN ×2 (18:11)
[2018-10-03] MEDS ORDERED: DEXTROSE 40% GEL 15 GM TUBE PO PRN ×2 (18:11)
[2018-10-03] MEDS ORDERED: NORMAL SALINE 1000 ML 1,000 ML IV PRN (18:11)
[2018-10-03] MEDS ORDERED: GLUCAGON,HUMAN RECOMB 1 MG INJ SUBCUT PRN (18:11)
[2018-10-03] MEDS ORDERED: ONDANSETRON HCL INJ/PF 4 MG/2 ML SDV IV PRN (18:11)
[2018-10-03] MEDS ORDERED: ACETAMINOPHEN 325 MG TABLET PO PRN (18:11)
[2018-10-03] MEDS ORDERED: MORPHINE SULFATE 10 MG/ML INJ IV PRN (18:21)
--- NOTE | 2018-10-03 18:30 | PDOC H&P ---
History of Present Illness Admission Date/PCP: 10/03/18 18:06 Patient complains of: Abdominal pain History of Present Illness: ITALIA DARNELL is a 22 year old female with history of obesity came to the emergency room with complaints of on and off abdominal pain for the last 1 month. Came to the emergency room several times. She was given antibiotics and steroids. Came in again today for severe abdominal pain CT abdomen pelvis was done ultrasound of the gallbladder was done ultrasound of the right upper quadrant shows hepatic steatosis and CT scan shows inflammatory changes in the right lower quadrant along the cecum ileocecal wall distal ileum. ER physician discussed the case with surgery Dr. Rao his recommendation is medical team to admit the patient and is he going to follow the patient upstairs. Work-up indicates WBC count of 16,000 patient is afebrile blood pressures are stable. Past Medical History Pulmonary Medical History: Reports: Bronchitis Neurological Medical History: Reports: Migraine Past Surgical History Past Surgical History: Reports: Other - [place] tooth removal Social History Information Source: Patient Smoking Status: Current Some Day Smoker Frequency of Alcohol Use: Occasional Hx Recreational Drug Use: No Hx Prescription Drug Abuse: No - Advance Directive Resuscitation Status: Full Code Family History Family History: Arthritis, DM, Hyperlipidemia, Hypertension, Malignancy Parental Family History Reviewed: Yes - No significant family history. Children Family History Reviewed: Yes Sibling(s) Family History Reviewed.: Yes Medication/Allergy Allergies/Adverse Reactions: No Known Allergies Allergy (Verified 10/03/18 09:08) Review of Systems Constitutional: ABSENT: fatigue, fever(s), weakness Eyes: ABSENT: visual disturbances Ears: ABSENT: hearing changes Nose, Mouth, and Throat: ABSENT: sore throat Cardiovascular: ABSENT: orthropnea, palpitations Respiratory: ABSENT: dyspnea, hemoptysis Gastrointestinal: PRESENT: abdominal pain, other - one Episode of loose stool yesterday.. ABSENT: melena, nausea, vomiting Musculoskeletal: ABSENT: joint swelling Neurological: ABSENT: abnormal gait, abnormal speech, confusion, dizziness, focal weakness, syncope Physical Exam Vital Signs: Temp Pulse Resp BP Pulse Ox 98.2 F 95 16 121/74 98 10/03/18 14:46 10/03/18 14:46 10/03/18 14:46 10/03/18 14:46 10/03/18 14:46 Intake & Output 10/02/18 10/03/18 10/04/18 06:59 06:59 06:59 Intake Total 1000 Balance 1000 Weight 110.1 kg General appearance: PRESENT: no acute distress, obese Head exam: PRESENT: atraumatic Eye exam: PRESENT: PERRLA Mouth exam: PRESENT: moist, tongue midline Neck exam: ABSENT: carotid bruit, JVD, lymphadenopathy, thyromegaly Respiratory exam: PRESENT: clear to auscultation terry. ABSENT: rales, rhonchi, wheezes Cardiovascular exam: PRESENT: RRR. ABSENT: diastolic murmur, rubs, systolic murmur GI/Abdominal exam: PRESENT: normal bowel sounds, soft. ABSENT: distended, g uarding, mass, organolmegaly, rebound, tenderness Rectal exam: PRESENT: deferred Extremities exam: PRESENT: full ROM. ABSENT: calf tenderness, clubbing, pedal edema Neurological exam: PRESENT: alert, awake, oriented to person, oriented to place, oriented to time, oriented to situation, CN II-XII grossly intact. ABSENT: mo tor sensory deficit Psychiatric exam: PRESENT: appropriate affect, normal mood. ABSENT: homicidal ideation, suicidal ideation Results Laboratory Results: 10/03/18 09:44 10/03/18 09:44 10/03/18 10/03/18 10/03/18 09:44 09:44 09:44 WBC 16.0 H RBC 4.46 Hgb 14.4 Hct 41.7 MCV 94 MCH 32.3 MCHC 34.5 RDW 12.7 Plt Count 337 Seg Neutrophils % 72.5 Lymphocytes % 20.2 Monocytes % 6.5 Eosinophils % 0.5 Basophils % 0.3 Absolute Neutrophils 11.6 H Absolute Lymphocytes 3.2 Absolute Monocytes 1.0 Absolute Eosinophils 0.1 Absolute Basophils 0.1 Sodium 138.4 Potassium 3.8 Chloride 100 Carbon Dioxide 29 Anion Gap 9 BUN 10 Creatinine 0.79 Est GFR ( Amer) > 60 Est GFR (Non-Af Amer) > 60 Glucose 202 H Calcium 9.5 Total Bilirubin 0.5 AST 18 ALT 39 Alkaline Phosphatase 73 Total Protein 7.6 Albumin 4.1 Lipase 208.8 Serum HCG, Qual NEGATIVE Urine Color Urine Appearance Urine pH Ur Specific [place] Urine Protein Urine Glucose (UA) Urine Ketones Urine Blood Urine Nitrite Ur Leukocyte Esterase Urine WBC (Auto) Urine RBC (Auto) 10/03/18 09:44 WBC RBC Hgb Hct MCV MCH MCHC RDW Plt Count Seg Neutrophils % Lymphocytes % Monocytes % Eosinophils % Basophils % Absolute Neutrophils Absolute Lymphocytes Absolute Monocytes Absolute Eosinophils Absolute Basophils Sodium Potassium Chloride Carbon Dioxide Anion Gap BUN Creatinine Est GFR ( Amer) Est GFR (Non-Af Amer) Glucose Calcium Total Bilirubin AST ALT Alkaline Phosphatase Total Protein Albumin Lipase Serum HCG, Qual Urine Color YELLOW Urine Appearance SLIGHTLY-CLOUDY Urine pH 6.0 Ur Specific [place] 1.015 Urine Protein NEGATIVE Urine Glucose (UA) NEGATIVE Urine Ketones NEGATIVE Urine Blood NEGATIVE Urine Nitrite NEGATIVE Ur Leukocyte Esterase SMALL H Urine WBC (Auto) 12 Urine RBC (Auto) 2 Impressions: Abdomen Ultrasound 10/03/18 09:33 IMPRESSION: Hepatic steatosis. Abdomen/Pelvis CT 10/03/18 13:22 IMPRESSION: Right lower quadrant mesenteric fatty inflammation along the cecum and ileocecal valve/distal ileum. This could indicate inflammatory bowel disease. Appendicitis is possible but considered less likely, given that the appendix is dorsal to this area, and fills with air. This suggests against acute appendicitis. Findings discussed with Stacy Cm in the emergency room Assessment and Plan - Diagnosis (1) Abdominal pain Is this a current diagnosis for this admission?: Yes Plan: 10/03/2018-patient came in with abdominal pain most likely secondary to inflammation involving the right-sided colon around the cecum and distal ileum. She received IV morphine in the emergency room at the time of my examination abdomen was soft benign. (2) Leukocytosis Is this a current diagnosis for this admission?: Yes Plan: 10/03/2018-patient's WBC count is 16,000 she taking prednisone at home now. Last dose was [address] scan shows inflammation of the bowel around the cecum and distal ileum. Started on IV Flagyl and IV Cipro started on IV Solu- Medrol and Asacol. Surgical consult was requested GI consult was requested with Dr. De Santiago. (3) Inflammatory bowel disease Is this a current diagnosis for this admission?: Yes Plan: 10/03/2018-patient came in with abdominal pains on and off for the last 1 month. One episode of loose stool yesterday. Denies any blood in the stool. Started on Asacol and IV Solu-Medrol GI consult was requested. In my opinion inflammatory bowel disease is very unlikely. (4) Obesity Is this a current diagnosis for this admission?: No Plan: 10/03/2018-BMI is more than 43. Diet exercise weight loss lifestyle modifications are discussed with the patient. Dietary consult will be requested. (5) Tobacco abuse Is this a current diagnosis for this admission?: No Plan: 10/03/2018-patient has history of smoking for more than 5 years. Current day smoker. Smoking counseling was provided for more than 10 minutes and started on nicotine patch 21 mg daily. - Time Time Spent with patient: 25-34 minutes Smoking Cessation Education: over 10 minutes Medications reviewed and adjusted accordingly: Yes Anticipated discharge: Home
[2018-10-03] MEDS: CIPROFLOXACIN 400 MG/D5W RTU 400 MG/200 ML RTUPB IV ONE ×2 (18:40→19:22)
--- NOTE | 2018-10-03 19:44 | PDOC CONSULTATION ---
Consultation Consult Date: 10/03/18 Provider Consulted: SHAYNA ABDI History of Present Illness Admission Date/PCP: 10/03/18 18:06 Patient complains of: Abdominal pain History of Present Illness: ITALIA DARNELL is a 22 year old female presenting with several month history of intermittent right upper quadrant abdominal pain. Patient has noted that the pain has become much more frequent in the past month. It is crampy in nature and can last for several hours at a time. Patient has had no nausea or vomiting but she has had frequent episodes of loose bowel movements. No blood per rectum as far as she can tell. No weight loss. No fever. No jaundice. Pain is unrelated with food. She states that sometimes a hot shower helps. Otherwise no other relieving factors. Patient denies any flank pain. Past Medical History Pulmonary Medical History: Reports: Bronchitis Neurological Medical History: Reports: Migraine Past Surgical History Past Surgical History: Reports: Other - [place] tooth removal Social History Smoking Status: Current Some Day Smoker Frequency of Alcohol Use: Occasional Hx Recreational Drug Use: No Hx Prescription Drug Abuse: No - Advance Directive Resuscitation Status: Full Code Family History Family History: Arthritis, DM, Hyperlipidemia, Hypertension, Malignancy Parental Family History Reviewed: Yes Children Family History Reviewed: Yes Sibling(s) Family History Reviewed.: Yes Medication/Allergy Allergies/Adverse Reactions: No Known Allergies Allergy (Verified 10/03/18 09:08) Review of Systems All systems: reviewed and no additional remarkable complaints except as stated Gastrointestinal: PRESENT: as per HPI Physical Exam Vital Signs: Temp Pulse Resp BP Pulse Ox 98.4 F 93 18 128/81 H 98 10/03/18 18:39 10/03/18 18:39 10/03/18 18:39 10/03/18 18:39 10/03/18 18:39 Intake & Output 10/02/18 10/03/18 10/04/18 06:59 06:59 06:59 Intake Total 1000 Balance 1000 Weight 110.1 kg General appearance: PRESENT: no acute distress, cooperative Eye exam: PRESENT: conjunctiva pink Neck exam: PRESENT: other - Supple with no masses and no tenderness Respiratory exam: PRESENT: clear to auscultation terry Cardiovascular exam: PRESENT: RRR GI/Abdominal exam: PRESENT: other - Soft, nondistended, mild tenderness in the right upper quadrant and right mid abdomen without peritoneal signs. Patient does not have tenderness in the right lower quadrant. Neurological exam: PRESENT: alert, awake Psychiatric exam: PRESENT: appropriate affect Results Laboratory Results: 10/03/18 09:44 10/03/18 09:44 10/03/18 10/03/18 10/03/18 09:44 09:44 09:44 WBC 16.0 H RBC 4.46 Hgb 14.4 Hct 41.7 MCV 94 MCH 32.3 MCHC 34.5 RDW 12.7 Plt Count 337 Seg Neutrophils % 72.5 Lymphocytes % 20.2 Monocytes % 6.5 Eosinophils % 0.5 Basophils % 0.3 Absolute Neutrophils 11.6 H Absolute Lymphocytes 3.2 Absolute Monocytes 1.0 Absolute Eosinophils 0.1 Absolute Basophils 0.1 Sodium 138.4 Potassium 3.8 Chloride 100 Carbon Dioxide 29 Anion Gap 9 BUN 10 Creatinine 0.79 Est GFR ( Amer) > 60 Est GFR (Non-Af Amer) > 60 Glucose 202 H Calcium 9.5 Total Bilirubin 0.5 AST 18 ALT 39 Alkaline Phosphatase 73 Total Protein 7.6 Albumin 4.1 Lipase 208.8 Serum HCG, Qual NEGATIVE Urine Color Urine Appearance Urine pH Ur Specific [place] Urine Protein Urine Glucose (UA) Urine Ketones Urine Blood Urine Nitrite Ur Leukocyte Esterase Urine WBC (Auto) Urine RBC (Auto) 10/03/18 09:44 WBC RBC Hgb Hct MCV MCH MCHC RDW Plt Count Seg Neutrophils % Lymphocytes % Monocytes % Eosinophils % Basophils % Absolute Neutrophils Absolute Lymphocytes Absolute Monocytes Absolute Eosinophils Absolute Basophils Sodium Potassium Chloride Carbon Dioxide Anion Gap BUN Creatinine Est GFR ( Amer) Est GFR (Non-Af Amer) Glucose Calcium Total Bilirubin AST ALT Alkaline Phosphatase Total Protein Albumin Lipase Serum HCG, Qual Urine Color YELLOW Urine Appearance SLIGHTLY-CLOUDY Urine pH 6.0 Ur Specific [place] 1.015 Urine Protein NEGATIVE Urine Glucose (UA) NEGATIVE Urine Ketones NEGATIVE Urine Blood NEGATIVE Urine Nitrite NEGATIVE Ur Leukocyte Esterase SMALL H Urine WBC (Auto) 12 Urine RBC (Auto) 2 Impressions: Abdomen Ultrasound 10/03/18 09:33 IMPRESSION: Hepatic steatosis. Abdomen/Pelvis CT 10/03/18 13:22 IMPRESSION: Right lower quadrant mesenteric fatty inflammation along the cecum and ileocecal valve/distal ileum. This could indicate inflammatory bowel disease. Appendicitis is possible but considered less likely, given that the appendix is dorsal to this area, and fills with air. This suggests against acute appendicitis. Findings discussed with Stacy Cm in the emergency room Assessment & Plan - Diagnosis (1) Abdominal pain Qualifiers: Abdominal location: right upper quadrant Qualified Code(s): R10.11 - Right upper quadrant pain Is this a current diagnosis for this admission?: Yes Plan: Right upper quadrant abdominal pain without evidence of gallbladder disease by ultrasound nor by CT scan. CT scan however demonstrates terminal ileal abnormalities with inflammatory changes with a normal-appearing appendix. I have reviewed the CT scan with radiology. The appendix does indeed look normal and there is no inflammatory changes around the appendix. Appendix is well r emoved from the inflammatory changes around the ileum. With the chronicity of her symptoms, inflammatory bowel disease is certainly in the differential diagnosis. However I do not see an indication for surgical intervention. Recommend admission to the medical service and placing her on antibiotics. Gastroenterology consultation may be helpful if available. Surgery service will follow along. She would benefit from a colonoscopy with attempt at intubating the terminal ileum. This procedure could be done as an outpatient with an outpatient referral to gastroenterology.
[2018-10-03 19:56] LABS: URINE AMPHETAMINES SCREEN NEGATIVE; URINE BARBITURATES SCREEN NEGATIVE; URINE BENZODIAZEPINES SCREEN NEGATIVE; URINE COCAINE SCREEN NEGATIVE; URINE MARIJUANA (THC) SCREEN UNCONFIRMED POSITIVE; URINE METHADONE SCREEN NEGATIVE; URINE PHENCYCLIDINE SCREEN NEGATIVE
[2018-10-03] MEDS ORDERED: CIPROFLOXACIN 400 MG/D5W RTU 400 MG/200 ML RTUPB IV ONE (20:15)
[2018-10-03] MEDS: FAMOTIDINE INJ/PF 20 MG/2 ML SDV IV SCH (21:18)
[2018-10-03] MEDS: METHYLPREDNISOLONE INJ 40 MG/1 ML SDV IV SCH (21:18)
[2018-10-03] MEDS ORDERED: CIPROFLOXACIN 400 MG/D5W RTU 400 MG/200 ML RTUPB IV SCH (22:00)
[2018-10-03] MEDS: METRONIDAZOLE 500 MG/NS RTU 500 MG/100 ML RTUPB IV SCH (23:36)
[2018-10-04] MEDS: METRONIDAZOLE 500 MG/NS RTU 500 MG/100 ML RTUPB IV SCH ×2 (05:25→14:41)
[2018-10-04 06:29] LABS: ABSOLUTE LYMPHOCYTES (AUTO) 0.9 10^3/uL (0.5-4.7); ABSOLUTE MONOCYTES (AUTO) 0.2 10^3/uL (0.1-1.4); ABSOLUTE NEUT (AUTO) 10.2 10^3/uL (1.7-8.2); BASOPHILS % (AUTO) 0.2 % (0-2); HEMATOCRIT 38.7 % (36.0-47.0); HEMOGLOBIN 13.3 g/dL (12.0-15.5); LYMPHOCYTES % (AUTO) 7.9 % (13-45); MEAN CORPUSCULAR HGB CONC 34.4 g/dL (32.0-36.0); MEAN CORPUSCULAR VOLUME 93 fl (80-97); MONOCYTES % (AUTO) 1.9 % (3-13); PLATELET COUNT 307 10^3/uL (150-450); RED BLOOD COUNT 4.15 10^6/uL (3.72-5.28); RED CELL DISTRIBUTION WIDTH 12.5 % (11.5-14.0); TOTAL CELLS COUNTED % (AUTO) 100 %; WHITE BLOOD COUNT 11.3 10^3/uL (4.0-10.5)
[2018-10-04 06:47] LABS: ALANINE AMINOTRANSFERASE 39 U/L (9-52); ALBUMIN 3.8 g/dL (3.5-5.0); ALKALINE PHOSPHATASE 77 U/L (38-126); ANION GAP 10 (5-19); ASPARTATE AMINO TRANSFERASE 20 U/L (14-36); BILIRUBIN,DIRECT 0.3 mg/dL (0.0-0.4); BILIRUBIN,TOTAL 0.6 mg/dL (0.2-1.3); BLOOD UREA NITROGEN 9 mg/dL (7-20); CALCIUM 9.2 mg/dL (8.4-10.2); CARBON DIOXIDE 23 mmol/L (22-30); CHLORIDE 103 mmol/L (98-107); GLUCOSE 162 mg/dL (75-110); TOTAL PROTEIN 7.3 g/dL (6.3-8.2); TRIGLYCERIDES 44 mg/dL (<150)
[2018-10-04 06:58] LABS: DIRECT LDL 107 mg/dL (<100)
[2018-10-04 07:01] LABS: INTERNATIONAL RATION (INR) 1.16; PROTHROMBIN TIME 14.9 SEC (11.4-15.4)
[2018-10-04 07:21] LABS: POTASSIUM 4.9 mmol/L (3.6-5.0)
--- NOTE | 2018-10-04 08:28 | PDOC PROGRESS REPORT ---
Subjective Progress Note for:: 10/04/18 Subjective:: practically no more abdominal pains. Had flatus early am. Hungry and wants to go home Reason For Visit: INFLAMMATORY BOWEL DISEASE Physical Exam Vital Signs: Temp Pulse Resp BP Pulse Ox 98.5 F 86 16 131/69 H 99 10/03/18 23:51 10/04/18 02:00 10/03/18 23:51 10/03/18 23:51 10/03/18 23:51 Intake & Output 10/03/18 10/04/18 10/05/18 06:59 06:59 06:59 Intake Total 2400 100 Balance 2400 100 Weight 109.3 kg Exam: abdomen is soft non tender Results Laboratory Results: 10/04/18 05:44 10/04/18 05:44 10/03/18 10/03/18 10/03/18 09:44 09:44 09:44 WBC 16.0 H RBC 4.46 Hgb 14.4 Hct 41.7 MCV 94 MCH 32.3 MCHC 34.5 RDW 12.7 Plt Count 337 Seg Neutrophils % 72.5 Lymphocytes % 20.2 Monocytes % 6.5 Eosinophils % 0.5 Basophils % 0.3 Absolute Neutrophils 11.6 H Absolute Lymphocytes 3.2 Absolute Monocytes 1.0 Absolute Eosinophils 0.1 Absolute Basophils 0.1 Sodium 138.4 Potassium 3.8 Chloride 100 Carbon Dioxide 29 Anion Gap 9 BUN 10 Creatinine 0.79 Est GFR ( Amer) > 60 Est GFR (Non-Af Amer) > 60 Glucose 202 H Calcium 9.5 Magnesium Total Bilirubin 0.5 AST 18 ALT 39 Alkaline Phosphatase 73 Total Protein 7.6 Albumin 4.1 Triglycerides Cholesterol LDL Cholesterol Direct VLDL Cholesterol HDL Cholesterol Lipase 208.8 TSH Serum HCG, Qual NEGATIVE Urine Color Urine Appearance Urine pH Ur Specific [place] Urine Protein Urine Glucose (UA) Urine Ketones Urine Blood Urine Nitrite Ur Leukocyte Esterase Urine WBC (Auto) Urine RBC (Auto) 10/03/18 10/04/18 10/04/18 09:44 05:44 05:44 WBC 11.3 H RBC 4.15 Hgb 13.3 Hct 38.7 MCV 93 MCH 32.0 MCHC 34.4 RDW 12.5 Plt Count 307 Seg Neutrophils % 90.0 H Lymphocytes % 7.9 L Monocytes % 1.9 L Eosinophils % 0.0 Basophils % 0.2 Absolute Neutrophils 10.2 H Absolute Lymphocytes 0.9 Absolute Monocytes 0.2 Absolute Eosinophils 0.0 Absolute Basophils 0.0 Sodium 136.0 L Potassium 4.9 D Chloride 103 Carbon Dioxide 23 Anion Gap 10 BUN 9 Creatinine 0.67 Est GFR ( Amer) > 60 Est GFR (Non-Af Amer) > 60 Glucose 162 H Calcium 9.2 Magnesium 2.2 Total Bilirubin 0.6 AST 20 ALT 39 Alkaline Phosphatase 77 Total Protein 7.3 Albumin 3.8 Triglycerides 44 Cholesterol 158.40 LDL Cholesterol Direct 107 H VLDL Cholesterol 9.0 L HDL Cholesterol 43 Lipase TSH Serum HCG, Qual Urine Color YELLOW Urine Appearance SLIGHTLY-CLOUDY Urine pH 6.0 Ur Specific [place] 1.015 Urine Protein NEGATIVE Urine Glucose (UA) NEGATIVE Urine Ketones NEGATIVE Urine Blood NEGATIVE Urine Nitrite NEGATIVE Ur Leukocyte Esterase SMALL H Urine WBC (Auto) 12 Urine RBC (Auto) 2 10/04/18 05:44 WBC RBC Hgb Hct MCV MCH MCHC RDW Plt Count Seg Neutrophils % Lymphocytes % Monocytes % Eosinophils % Basophils % Absolute Neutrophils Absolute Lymphocytes Absolute Monocytes Absolute Eosinophils Absolute Basophils Sodium Potassium Chloride Carbon Dioxide Anion Gap BUN Creatinine Est GFR ( Amer) Est GFR (Non-Af Amer) Glucose Calcium Magnesium Total Bilirubin AST ALT Alkaline Phosphatase Total Protein Albumin Triglycerides Cholesterol LDL Cholesterol Direct VLDL Cholesterol HDL Cholesterol Lipase TSH 0.30 L Serum HCG, Qual Urine Color Urine Appearance Urine pH Ur Specific [place] Urine Protein Urine Glucose (UA) Urine Ketones Urine Blood Urine Nitrite Ur Leukocyte Esterase Urine WBC (Auto) Urine RBC (Auto) Impressions: Abdomen Ultrasound 10/03/18 09:33 IMPRESSION: Hepatic steatosis. Abdomen/Pelvis CT 10/03/18 13:22 IMPRESSION: Right lower quadrant mesenteric fatty inflammation along the cecum and ileocecal valve/distal ileum. This could indicate inflammatory bowel disease. Appendicitis is possible but considered less likely, given that the appendix is dorsal to this area, and fills with air. This suggests against acute appendicitis. Findings discussed with Stacy Cm in the emergency room Assessment & Plan - Diagnosis (1) Abdominal pain Qualifiers: Abdominal location: right upper quadrant Qualified Code(s): R10.11 - Right upper quadrant pain Is this a current diagnosis for this admission?: Yes (2) Inflammatory bowel disease Is this a current diagnosis for this admission?: Yes (3) Leukocytosis Is this a current diagnosis for this admission?: Yes (4) Obesity Is this a current diagnosis for this admission?: No - Time Time Spent with patient: 15-24 minutes - Plan Summary Plan Summary: Start clears and advance as tolerated. OK to discharge home on po antibiotics x 1 week for Inflammatory bowel disease. Follow up surgical clinic in 2 weeks to schedule colonoscopy or patient's choice GI or surgery
[2018-10-04] MEDS ORDERED: ENOXAPARIN SODIUM INJ 40 MG/0.4 ML DISP.SYRIN SUBCUT SCH (10:00)
[2018-10-04] MEDS ORDERED: CIPROFLOXACIN 400 MG/D5W RTU 400 MG/200 ML RTUPB IV SCH (10:00)
[2018-10-04] MEDS: METHYLPREDNISOLONE INJ 40 MG/1 ML SDV IV SCH (10:07)
[2018-10-04] MEDS: FAMOTIDINE INJ/PF 20 MG/2 ML SDV IV SCH (10:07)
[2018-10-04] MEDS: MESALAMINE 400 MG CAPSULE.DR PO SCH ×2 (10:10→15:35)
--- NOTE | 2018-10-04 10:44 | PDOC DISCHARGE SUMMARY ---
General - Admit/Disc Date/PCP Admission Date/Primary Care Provider: 10/03/18 18:06 Discharge Date: 10/04/18 - Discharge Diagnosis (1) Abdominal pain Is this a current diagnosis for this admission?: Yes Summary: 10/03/2018-patient came in with abdominal pain most likely secondary to inflammation involving the right-sided colon around the cecum and distal ileum. She received IV morphine in the emergency room at the time of my examination abdomen was soft benign. 10/04/[id number]-old female admitted with abdominal pain most likely secondary to inflammation around the colon involving the distal ileum and cecum. Started on IV antibiotic therapy and pain medications patient is pain-free today. Going home on Percocet 10 325 mg every 6 PRN for pain. Patient was strongly advised to follow-up with the surgical team as an outpatient and also with [facility] in 2 weeks time for possible colonoscopy. Patient verbalized response on going home today. (2) Leukocytosis Is this a current diagnosis for this admission?: Yes Summary: 10/03/2018-patient's WBC count is 16,000 she taking prednisone at home now. Last dose was [address] scan shows inflammation of the bowel around the cecum and distal ileum. Started on IV Flagyl and IV Cipro started on IV Solu- Medrol and Asacol. Surgical consult was requested GI consult was requested with Dr. De Santiago. 2018-patient came in with a WBC count of 16,000 improved to 11,100 today. Most likely secondary to prednisone use at home. (3) Inflammatory bowel disease Is this a current diagnosis for this admission?: Yes Summary: 10/03/2018-patient came in with abdominal pains on and off for the last 1 month. One episode of loose stool yesterday. Denies any blood in the stool. Started on Asacol and IV Solu-Medrol GI consult was requested. In my opinion inflammatory bowel disease is very unlikely. 10/04/2018-patient was admitted with abdominal pain found to have a inflammation of the distal ileum and around the cecum did not involve appendix as per the surgical team she was started on IV Solu-Medrol Asacol and IV antibiotic therapy she is going home on Asacol, (4) Obesity Is this a current diagnosis for this admission?: No (5) Tobacco abuse Is this a current diagnosis for this admission?: No - Additional Information Resuscitation Status: Full Code Discharge Activity: Activity As Tolerated Prescriptions: Ciprofloxacin 500 mg PO DAILY #7 ml Mesalamine [Asacol Sr 400 mg Capsule] 400 mg PO TID #120 capsule. Oxycodone HCl/Acetaminophen [Percocet 10-325 Mg Tablet] 1 each PO Q6HP PRN #20 tablet PRN Reason: Prednisone 10 mg PO BID #14 tab.[email or web address] Home Medications: Ciprofloxacin 500 mg PO DAILY #7 ml 10/04/18 Mesalamine [Asacol Sr 400 mg Capsule] 400 mg PO TID #120 capsule. 10/04/18 Oxycodone HCl/Acetaminophen [Percocet 10-325 Mg Tablet] 1 each PO Q6HP PRN #20 tablet 10/04/18 Prednisone 10 mg PO BID #14 tab.ds.pk 10/04/18 History of Present Illness History of Present Illness: ITALIA DARNELL is a 22 year old female with history of obesity came to the emergency room with complaints of on and off abdominal pain for the last 1 month. Came to the emergency room several times. She was given antibiotics and steroids. Came in again today for severe abdominal pain CT abdomen pelvis was done ultrasound of the gallbladder was done ultrasound of the right upper quadrant shows hepatic steatosis and CT scan shows inflammatory changes in the right lower quadrant along the cecum ileocecal wall distal ileum. ER physician discussed the case with surgery Dr. Rao his recommendation is medical team to admit the patient and is he going to follow the patient upstairs. Work-up indicates WBC count of 16,000 patient is afebrile blood pressures are stable. Hospital Course Hospital Course: No complications during the hospital stay. The Hussein Ervin female admitted with right upper quadrant pain CT scan and ultrasound of the right upper quadrant are negative except for hepatic steatosis. CT scan shows inflammation around the distal ileum and cecum. Started on IV antibiotic therapy patient is afebrile. WBC count came back normal. Surgical consult was done recommendation is to advance the diet and recommended that patient can go home this evening if tolerates the diet well. They want to see her in the office in 1 to 2 weeks. Patient is also expressing desire to go home I strongly recommended her to stay at least another day but the patient refused my suggestion prefers to go home today with antibiotic therapy. Physical Exam Vital Signs: Temp Pulse Resp BP Pulse Ox 97.8 F 88 16 126/80 H 99 10/04/18 08:00 10/04/18 08:35 10/04/18 08:00 10/04/18 08:00 10/04/18 08:00 Intake & Output 10/03/18 10/04/18 10/05/18 06:59 06:59 06:59 Intake Total 2400 100 Balance 2400 100 Weight 109.3 kg General appearance: PRESENT: no acute distress, morbidly obese Head exam: PRESENT: atraumatic Eye exam: PRESENT: PERRLA Mouth exam: PRESENT: moist, tongue midline Teeth exam: PRESENT: poor dentation Neck exam: ABSENT: carotid bruit, JVD, lymphadenopathy, thyromegaly Respiratory exam: PRESENT: clear to auscultation terry. ABSENT: rales, rhonchi, wheezes Cardiovascular exam: PRESENT: RRR. ABSENT: diastolic murmur, rubs, systolic mur mur GI/Abdominal exam: PRESENT: normal bowel sounds, soft. ABSENT: distended, guarding, mass, organolmegaly, rebound, tenderness Rectal exam: PRESENT: deferred Neurological exam: PRESENT: alert, awake, oriented to person, oriented to place, oriented to time, oriented to situation, CN II-XII grossly intact. ABSENT: motor sensory deficit Psychiatric exam: PRESENT: appropriate affect, normal mood. ABSENT: homicidal ideation, suicidal ideation Results Laboratory Results: 10/04/18 05:44 10/04/18 05:44 10/04/18 10/04/18 10/04/18 05:44 05:44 05:44 WBC 11.3 H RBC 4.15 Hgb 13.3 Hct 38.7 MCV 93 MCH 32.0 MCHC 34.4 RDW 12.5 Plt Count 307 Seg Neutrophils % 90.0 H Lymphocytes % 7.9 L Monocytes % 1.9 L Eosinophils % 0.0 Basophils % 0.2 Absolute Neutrophils 10.2 H Absolute Lymphocytes 0.9 Absolute Monocytes 0.2 Absolute Eosinophils 0.0 Absolute Basophils 0.0 Sodium 136.0 L Potassium 4.9 D Chloride 103 Carbon Dioxide 23 Anion Gap 10 BUN 9 Creatinine 0.67 Est GFR ( Amer) > 60 Est GFR (Non-Af Amer) > 60 Glucose 162 H Calcium 9.2 Magnesium 2.2 Total Bilirubin 0.6 AST 20 ALT 39 Alkaline Phosphatase 77 Total Protein 7.3 Albumin 3.8 Triglycerides 44 Cholesterol 158.40 LDL Cholesterol Direct 107 H VLDL Cholesterol 9.0 L HDL Cholesterol 43 TSH 0.30 L Impressions: Abdomen Ultrasound 10/03/18 09:33 IMPRESSION: Hepatic steatosis. Abdomen/Pelvis CT 10/03/18 13:22 IMPRESSION: Right lower quadrant mesenteric fatty inflammation along the cecum and ileocecal valve/distal ileum. This could indicate inflammatory bowel disease. Appendicitis is possible but considered less likely, given that the appendix is dorsal to this area, and fills with air. This suggests against acute appendicitis. Findings discussed with Stacy Cm in the emergency room Qualifiers - * PATIENT BEING DISCHARGED WITH ANY OF THE FOLLOWING DIAGNOSIS: No VTE patient discharged on overlapping Therapy?: No Acute Heart Failure - Is this a Heart Failure Patient?: No
[2018-10-04] MEDS ORDERED: LEVOFLOXACIN 500 MG/D5W RTU 500 MG/100 ML RTUPB IV ONE (11:00)
[2018-10-04 13:34] VITALS: BP 134/83
== END 2018-10-04 16:41 | disposition home or self-care (01) ==
LOC: ER 09:01 → INTOOBSV 18:06 → EH 18:06 → 4S 20:35
PROVIDERS: ADMIT Internal Medicine; ATTEND Internal Medicine
DX: D72.829 Elevated white blood cell count, unspecified (principal); K58.9 Irritable bowel syndrome, unspecified; F17.200 Nicotine dependence, unspecified, uncomplicated; E66.9 Obesity, unspecified; Z68.41 Body mass index [BMI] 40.0-44.9, adult
CPT/HCPCS: 36415 ×2; 87040; 87210; 83690; 83735; 84443; 84703; 85025 ×2; 85610; 87077; 80053 ×2; 81001; 80307; 83036; 87491; 87591; 80061; 76705; 74177; J1956; J2920 ×2; J1885; J3490 ×4; J2270; J1650; J2405 ×2; J7030; J0744; S0028 ×2; 99284; G0378

== ENCOUNTER 2019-04-14 20:34 | Emergency (ER) | payer SELFPAY ==
[2019-04-14 21:03] VITALS: BP 139/103
--- NOTE | 2019-04-14 21:27 | ER Document Report ---
ED Medical Screen (RME) - General Chief Complaint: Chest Wall Pain Stated Complaint: SHORTNESS OF BREATH/PAIN UNDER RIGHT BREAST Time Seen by Provider: 04/14/19 21:21 TRAVEL OUTSIDE OF THE [place] IN LAST 30 DAYS: No - HPI Notes: 04/14/19 21:26 Patient is a 23-year-old female no significant past medical history who presents complaining of feeling short of breath that worsened this evening that began earlier today. Patient states that she did have an upper respiratory illness recently, but that has improved. Patient states that she feels a "pinching" pain to her right anterior lower rib area. She is able to eat and drink without difficulty or worsening symptoms. She is urinating normally. Pain does not radiate. Denies drug allergies. Patient does admit to smoking. Denies any prolonged immobilization, distance travel, recent surgery/trauma, personal cancer history, hormone use, or previous DVT/PE. Denies ABDALLA, fever, neck pain, n/v/d, Abd pain, dysuria, back pain, or rash. I have treated and performed a rapid initial assessment of this patient. A comprehensive ED assessment and evaluation of the patient, analysis of test results and completion of medical decision making process will be conducted by additional ED providers. PHYSICAL EXAMINATION: GENERAL: Well-appearing, well-nourished and in no acute distress. A&Ox4. Answers questions appropriately. LUNGS: Breath sounds clear to auscultation bilaterally and equal. No wheezes rales or rhonchi. HEART: Regular rate and rhythm without murmurs, rubs, gallops. Extremities: No cyanosis, clubbing, or edema b/l. Yola negative bilaterally. No lower extremity asymmetry. NEUROLOGICAL: Normal speech, normal gait. PSYCH: Normal mood, normal affect. - Related Data Allergies/Adverse Reactions: No Known Allergies Allergy (Verified 04/14/19 21:20) Past Medical History Pulmonary Medical History: Reports: Hx Bronchitis Neurological Medical History: Reports: Hx Migraine Renal/ Medical History: Denies: Hx Peritoneal Dialysis Musculoskeltal Medical History: Reports Hx Musculoskeletal Trauma Skin Medical History: Reports Hx Cellulitis Psychiatric Medical History: Reports: Hx Anxiety Past Surgical History: Reports: Hx Oral Surgery - wisdom teeth, Other - [place] tooth removal - Immunizations Immunizations up to date: Yes Hx Diphtheria, Pertussis, Tetanus Vaccination: Yes Physical Exam - Vital signs Vitals: Temp Pulse Resp BP Pulse Ox 97.5 F 111 H 20 139/103 H 100 04/14/19 21:01 04/14/19 21:01 04/14/19 21:01 04/14/19 21:01 04/14/19 21:01 Course - Vital Signs Vital signs: Temp Pulse Resp BP Pulse Ox 97.5 F 111 H 20 139/103 H 100 04/14/19 21:01 04/14/19 21:01 04/14/19 21:01 04/14/19 21:01 04/14/19 21:01
--- NOTE | 2019-04-14 22:53 | RADIOLOGY REPORT (SQ) ---
EXAM DESCRIPTION: XR CHEST 2 VIEWS COMPLETED DATE/TME: 04/14/2019 21:25 CLINICAL HISTORY: 23 years, Female, SOB COMPARISON: 05/01/2018 chest NUMBER OF VIEWS: 2 TECHNIQUE: 2 views of the chest LIMITATIONS: None. FINDINGS: The heart size is normal. Lungs are clear. No pneumothorax IMPRESSION: Negative chest copyright 2010 [employer]- All Rights Reserved
== END 2019-04-14 23:25 | disposition left against medical advice (07) ==
LOC: ER 20:34
DX: R06.02 Shortness of breath (principal); R07.81 Pleurodynia; Z53.20 Procedure and treatment not carried out because of patient's decision for unspecified reasons
CPT/HCPCS: 71046; 99281; 99284